=== PATIENT | female | born 1970 | race Two or more races ===

== ENCOUNTER 2016-09-05 16:50 | Emergency (ER) | payer MEDICAID ==
[~2016-09-05] VITALS: Ht 165.1 cm; Wt 90.7 kg
[2016-09-05 17:58] LABS: Albumin 3.7 g/dL (3.4-5.0); BUN/Creatinine Ratio 18.6; Calcium 8.4 mg/dL (8.5-10.1); Potassium 3.8 mmol/L (3.5-5.1)
[2016-09-05 18:09] LABS: Bilirubin, Total 0.2 mg/dL (0.2-1.0); Total Protein 7.5 g/dL (6.4-8.2)
[2016-09-05 18:32] LABS: Basophils # (auto) 0.1 uL; Basophils % (auto) 0.6 % (0.0-2.0); Eosinophils # (auto) 0.2 uL; Eosinophils % (auto) 2.1 % (0.0-7.0); Hematocrit 38.6 % (36.0-46.0); Hemoglobin 13.5 g/dL (12.2-16.2); Lymphocytes # (auto) 1.9 uL; Lymphocytes % (auto) 24.2 % (10.0-50.0); Mean Corpuscular Hemoglobin 31.9 pg (28.0-32.0); Mean Corpuscular Volume 91.1 fL (80.0-100.0); Mean Platelet Volume 9.1 fL (7.4-10.4); Monocytes # (auto) 0.3 uL; Monocytes % (auto) 3.6 % (0.0-12.0); Neutrophils # (auto) 5.4 uL; Neutrophils % (auto) 69.5 % (37.0-80.0); Platelet Count (auto) 313 10^3/uL (140-450); Red Cell Distribution Width 12.9 % (11.6-16.0); White Blood Cell 7.8 10^3/uL (4.4-10.8)
[2016-09-05 20:19] LABS: Urine Bilirubin Negative (Negative); Urine Blood TRACE /uL (Negative); Urine Color Yellow (Yellow); Urine Glucose Normal (Normal); Urine Ketone Negative (Negative); Urine Nitrite Negative (Negative); Urine RBC 2 /hpf (0 - 4); Urine Squamous Epithelial Cell FEW /hpf (<5); Urine Urobilinogen Normal (Negative); Urine pH 5.5 (5.0-8.0)
[2016-09-05 22:33] VITALS: BP 145/95
== END 2016-09-05 22:33 | disposition home or self-care (01) ==
LOC: ER 17:00
DX: R10.9 Unspecified abdominal pain (principal); J45.909 Unspecified asthma, uncomplicated; I10 Essential (primary) hypertension; Z90.710 Acquired absence of both cervix and uterus
CPT/HCPCS: 36415; 71020; 74176; 80053; 81001; 84484; 85025; 93005

== ENCOUNTER 2017-09-22 16:28 | Emergency (ER) | payer SELFPAY ==
[~2017-09-22] VITALS: Ht 165.1 cm; Wt 90.7 kg
[2017-09-22 17:27] LABS: Urine Bacteria NONE SEEN /hpf (None Seen); Urine Blood Negative /uL (Negative); Urine Specific Gravity 1.034 (1.001-1.035); Urine WBC 3 /hpf (0 - 5)
[2017-09-22 17:29] LABS: Basophils # (auto) 0.1 uL; Basophils % (auto) 1.2 % (0.0-2.0); Eosinophils # (auto) 0.1 uL; Eosinophils % (auto) 1.7 % (0.0-7.0); Hematocrit 40.3 % (36.0-46.0); Hemoglobin 13.9 g/dL (12.2-16.2); Lymphocytes # (auto) 1.4 uL; Lymphocytes % (auto) 27.7 % (10.0-50.0); Mean Corpuscular Hemoglobin 31.9 pg (28.0-32.0); Mean Corpuscular Hgb Conc. 34.6 g/dL (32.0-36.0); Mean Corpuscular Volume 92.1 fL (80.0-100.0); Monocytes # (auto) 0.3 uL; Monocytes % (auto) 5.7 % (0.0-12.0); Neutrophils # (auto) 3.2 uL; Neutrophils % (auto) 63.7 % (37.0-80.0); Nucleated Red Blood Cells % 0.1 %; Platelet Count (auto) 251 10^3/uL (140-450); Red Blood Cells 4.37 10^6/uL (4.0-5.20); Red Cell Distribution Width 12.7 % (11.8-14.3); White Blood Cell 5.1 10^3/uL (4.4-10.8)
[2017-09-22 17:41] LABS: Albumin 3.8 g/dL (3.4-5.0); BUN/Creatinine Ratio 16.4; Bilirubin, Total 0.4 mg/dL (0.2-1.0); Calcium 8.7 mg/dL (8.5-10.1); Potassium 3.9 mmol/L (3.5-5.1); Total Protein 7.5 g/dL (6.4-8.2)
[2017-09-22 18:31] VITALS: BP 135/67
== END 2017-09-22 18:32 | disposition home or self-care (01) ==
LOC: ER 16:28
DX: R10.9 Unspecified abdominal pain (principal); I10 Essential (primary) hypertension; J45.909 Unspecified asthma, uncomplicated; E78.5 Hyperlipidemia, unspecified
CPT/HCPCS: 36415; 74176; 80053; 81001; 82150; 83690; 85025; 99285; J7030

== ENCOUNTER 2019-01-13 11:36 | Emergency (ER) | payer MEDICAID ==
[~2019-01-13] VITALS: Ht 165.1 cm; Wt 83.9 kg
[2019-01-13 12:06] VITALS: BP 123/56
[2019-01-13] MEDS ORDERED: ACETAMINOPHEN 500 MG TAB PO ONE (13:30)
== END 2019-01-13 14:24 | disposition home or self-care (01) ==
LOC: ER 11:38
DX: T59.891A Toxic effect of other specified gases, fumes and vapors, accidental (unintentional), initial encounter (principal); R51 Headache; E78.5 Hyperlipidemia, unspecified; I10 Essential (primary) hypertension; J45.909 Unspecified asthma, uncomplicated; Z90.710 Acquired absence of both cervix and uterus; Y92.89 Other specified places as the place of occurrence of the external cause
CPT/HCPCS: 71046

== ENCOUNTER 2020-12-06 23:56 | Emergency (ER) | payer MEDICAID ==
[~2020-12-06] VITALS: Ht 167.6 cm; Wt 93.0 kg
[2020-12-07 01:02] LABS: Basophils # (auto) 0 10 ^3/uL (0-0.2); Basophils % (auto) 0.6 % (0.0-2.0); Eosinophils # (auto) 0.1 10 ^3/uL (0-0.8); Eosinophils % (auto) 1.7 % (0.0-7.0); Hematocrit 39.5 % (36.0-46.0); Hemoglobin 13.7 g/dL (12.2-16.2); Lymphocytes # (auto) 1.5 10 ^3/uL (0.4-5.4); Lymphocytes % (auto) 24.4 % (10.0-50.0); Mean Corpuscular Hemoglobin 31.9 pg (28.0-32.0); Mean Corpuscular Hgb Conc. 34.7 g/dL (32.0-36.0); Mean Corpuscular Volume 91.8 fL (80.0-100.0); Monocytes # (auto) 0.3 10 ^3/uL (0-1.3); Monocytes % (auto) 5.6 % (0.0-12.0); Neutrophils # (auto) 4.1 10 ^3/uL (1.6-8.6); Neutrophils % (auto) 67.7 % (37.0-80.0); Nucleated Red Blood Cells % 0.1 %; Red Cell Distribution Width 13.2 % (11.8-14.3)
[2020-12-07 01:17] LABS: INR 0.99 (0.9-1.15)
[2020-12-07 01:21] LABS: Alanine Aminotransferase 40 U/L (13-56); Albumin 3.7 g/dL (3.4-5.0); Anion Gap 9 (5-15); Aspartate Aminotransferase 14 U/L (15-37); BUN/Creatinine Ratio 24.2; Blood Urea Nitrogen 15 mg/dL (7-18); Carbon Dioxide 27 mmol/L (21-32); Chloride 103 mmol/L (98-107); GFR African American 131 mL/min; GFR Non-African American 108 mL/min; Glucose 225 mg/dL (74-106); Potassium 4.1 mmol/L (3.5-5.1); Sodium 139 mmol/L (136-145)
[2020-12-07 01:28] LABS: Alkaline Phosphatase 73 U/L (45-117); Bilirubin, Total 0.4 mg/dL (0.2-1.0); Total Protein 7.5 g/dL (6.4-8.2)
[2020-12-07 01:49] LABS: Urine Bacteria FEW /hpf (None Seen); Urine Blood Negative /uL (Negative); Urine Specific Gravity 1.018 (1.001-1.035); Urine WBC 5 /hpf (0 - 5)
[2020-12-07] MEDS ORDERED: KETOROLAC TROMETH 30 MG/ML 1ML VIAL IV ONE (03:00)
[2020-12-07 04:12] VITALS: BP 114/62
== END 2020-12-07 06:10 | disposition home or self-care (01) ==
LOC: EDBD 23:56 → ER 12-07 00:04
DX: R07.89 Other chest pain (principal); J45.909 Unspecified asthma, uncomplicated; E11.9 Type 2 diabetes mellitus without complications; E78.5 Hyperlipidemia, unspecified; I10 Essential (primary) hypertension; Z90.710 Acquired absence of both cervix and uterus; Z20.822 Contact with and (suspected) exposure to COVID-19
CPT/HCPCS: 36415; 71045; 80053; 81001; 83735; 83880; 84443; 84484; 85025; 85379; 85610; 87426; 93005; 96374; 99285; J1885

== ENCOUNTER 2021-09-04 21:25 | Emergency (ER) | payer MEDICAID ==
[~2021-09-04] VITALS: Ht 165.1 cm; Wt 83.9 kg
[2021-09-04 23:05] LABS: Basophils # (auto) 0.1 10 ^3/uL (0-0.2); Basophils % (auto) 0.7 % (0.0-2.0); Eosinophils # (auto) 0.1 10 ^3/uL (0-0.8); Eosinophils % (auto) 1.2 % (0.0-7.0); Hematocrit 40.3 % (36.0-46.0); Hemoglobin 14.2 g/dL (12.2-16.2); Lymphocytes # (auto) 1.5 10 ^3/uL (0.4-5.4); Lymphocytes % (auto) 14.2 % (10.0-50.0); Mean Corpuscular Hemoglobin 31.6 pg (28.0-32.0); Mean Corpuscular Hgb Conc. 35.1 g/dL (32.0-36.0); Mean Corpuscular Volume 90.1 fL (80.0-100.0); Monocytes # (auto) 0.5 10 ^3/uL (0-1.3); Monocytes % (auto) 4.8 % (0.0-12.0); Neutrophils # (auto) 8.5 10 ^3/uL (1.6-8.6); Neutrophils % (auto) 79.1 % (37.0-80.0); Red Blood Cells 4.48 10^6/uL (4.0-5.20); Red Cell Distribution Width 13.5 % (11.8-14.3); White Blood Cell 10.8 10^3/uL (4.4-10.8)
[2021-09-04 23:33] LABS: Albumin 3.5 g/dL (3.4-5.0); Calcium 8.9 mg/dL (8.5-10.1); Potassium 4.2 mmol/L (3.5-5.1)
[2021-09-04 23:38] LABS: BUN/Creatinine Ratio 19.4; Bilirubin, Total 0.5 mg/dL (0.2-1.0); Total Protein 7.4 g/dL (6.4-8.2)
[2021-09-04] MEDS ORDERED: ONDANSETRON ODT 4 MG TAB PO ONE (23:45)
[2021-09-05] MEDS ORDERED: SODIUM CHLORIDE 0.9% 500 ML IV ONE (04:30)
[2021-09-05] MEDS ORDERED: metroNIDAZOLE 500MG/100ML 100 ML IV ONE (04:30)
[2021-09-05] MEDS ORDERED: HYDROmorphone HCL 2 MG/ML VL/or syr IV ONE (04:30)
[2021-09-05] MEDS ORDERED: CIPROFLOXACIN 400MG/200ML 200 ML IV ONE (04:30)
[2021-09-05] MEDS ORDERED: CIPR-173 PO (05:57)
[2021-09-05] MEDS ORDERED: METR500T PO (05:57)
[2021-09-05 07:46] VITALS: BP 146/92
[2021-09-05] MEDS ORDERED: HYDROcodone-ACET 5/325MG TAB PO ONE (08:00)
== END 2021-09-05 12:45 | disposition home or self-care (01) ==
LOC: ER 21:28
DX: K52.9 Noninfective gastroenteritis and colitis, unspecified (principal); I10 Essential (primary) hypertension; E11.9 Type 2 diabetes mellitus without complications; E78.5 Hyperlipidemia, unspecified; J45.909 Unspecified asthma, uncomplicated; Z86.2 Personal history of diseases of the blood and blood-forming organs and certain disorders involving the immune mechanism; Z90.710 Acquired absence of both cervix and uterus
CPT/HCPCS: 36415; 74176; 80053; 83690; 85025; 96365; 96366; 96367; 99284; J0744; J3490; J7040; Q0162

== ENCOUNTER 2023-09-11 15:10 | Emergency (ER) | payer MEDICAID ==
[~2023-09-11] VITALS: Ht 165.1 cm; Wt 97.1 kg
[~2023-09-11 15:10] MED LIST: CIPR-173 PO; METR500T PO
[2023-09-11 16:16] LABS: Urine Bacteria FEW /hpf (None Seen); Urine Blood Negative /uL (Negative); Urine Clarity Clear (Clear); Urine Color Yellow (Yellow); Urine Protein, UAD TRACE (Negative); Urine Specific Gravity 1.026 (1.001-1.035); Urine Urobilinogen Normal (Negative); Urine WBC 6 /hpf (0 - 5); Urine pH 5.5 (5.0-9.0)
[2023-09-11 16:41] LABS: Basophils # (auto) 0.1 10 ^3/uL (0-0.2); Eosinophils # (auto) 0.1 10 ^3/uL (0-0.8); Eosinophils % (auto) 1.1 % (0.0-7.0); Hematocrit 43.3 % (36.0-46.0); Hemoglobin 14.7 g/dL (12.2-16.2); Lymphocytes # (auto) 2.2 10 ^3/uL (0.4-5.4); Lymphocytes % (auto) 26.9 % (10.0-50.0); Mean Corpuscular Hgb Conc. 33.9 g/dL (32.0-36.0); Mean Corpuscular Volume 88.7 fL (80.0-100.0); Monocytes # (auto) 0.5 10 ^3/uL (0-1.3); Monocytes % (auto) 5.7 % (0.0-12.0); Neutrophils # (auto) 5.2 10 ^3/uL (1.6-8.6); Neutrophils % (auto) 65.3 % (37.0-80.0); Nucleated Red Blood Cells % 0.3 %; Red Blood Cells 4.89 10^6/uL (4.0-5.20); Red Cell Distribution Width 13.3 % (11.8-14.3)
[2023-09-11 17:02] LABS: Alanine Aminotransferase 42 U/L (7-40); Albumin 4.5 g/dL (3.2-4.8); Alkaline Phosphatase 89 U/L (46-116); Anion Gap 6 (5-15); Aspartate Aminotransferase 14 U/L (13-40); BUN/Creatinine Ratio 16.7 (10.0-20.0); Bilirubin, Total 0.4 mg/dL (0.2-1.0); Blood Urea Nitrogen 14 mg/dL (9-23); Calcium 10.3 mg/dL (8.7-10.4); Carbon Dioxide 27 mmol/L (20-30); Chloride 103 mmol/L (98-107); Glucose 273 mg/dL (74-106); Lipase 29 U/L (12-53); Potassium 4.1 mmol/L (3.5-5.1); Sodium 136 mmol/L (136-145); Total Protein 7.1 g/dL (5.7-8.2)
[2023-09-11 17:13] VITALS: BP 135/79; PULSE 98; RESP 16; TEMP 98.7; O2SAT 96
== END 2023-09-11 17:21 | disposition home or self-care (01) ==
LOC: ER 15:10
DX: N83.202 Unspecified ovarian cyst, left side (principal); E11.9 Type 2 diabetes mellitus without complications; E78.5 Hyperlipidemia, unspecified; J45.909 Unspecified asthma, uncomplicated; R16.0 Hepatomegaly, not elsewhere classified; Z86.73 Personal history of transient ischemic attack (TIA), and cerebral infarction without residual deficits; Z90.710 Acquired absence of both cervix and uterus
CPT/HCPCS: 36415; 74176; 80053; 81001; 83605; 83690; 84484; 85025; 93005

== ENCOUNTER 2023-10-20 19:41 | Inpatient (IN) | payer MEDICAID ==
[~2023-10-20] VITALS: Ht 165.1 cm; Wt 94.8 kg
[2023-10-20 20:27] LABS: Urine Bacteria None Seen /hpf (None Seen)
[2023-10-20 20:49] LABS: Basophils # (auto) 0.1 10 ^3/uL (0-0.2); Basophils % (auto) 0.8 % (0.0-2.0); Eosinophils # (auto) 0.1 10 ^3/uL (0-0.8); Eosinophils % (auto) 1.3 % (0.0-7.0); Hematocrit 41.8 % (36.0-46.0); Hemoglobin 14.3 g/dL (12.2-16.2); Lymphocytes # (auto) 1.8 10 ^3/uL (0.4-5.4); Mean Corpuscular Hemoglobin 30.9 pg (28.0-32.0); Mean Corpuscular Hgb Conc. 34.3 g/dL (32.0-36.0); Monocytes # (auto) 0.4 10 ^3/uL (0-1.3); Monocytes % (auto) 6.3 % (0.0-12.0); Neutrophils # (auto) 4.1 10 ^3/uL (1.6-8.6); Neutrophils % (auto) 63.6 % (37.0-80.0); Nucleated Red Blood Cells % 0.2 %; Red Blood Cells 4.64 10^6/uL (4.0-5.20); Red Cell Distribution Width 13.3 % (11.8-14.3); White Blood Cell 6.4 10^3/uL (4.4-10.8)
[2023-10-20] MEDS: SODIUM CHLORIDE 0.9% 1,000 ML IV ONE (21:00)
[2023-10-20 21:05] LABS: Alanine Aminotransferase 32 U/L (7-40); Albumin 4.4 g/dL (3.2-4.8); Alkaline Phosphatase 88 U/L (46-116); Anion Gap 7 (5-15); Aspartate Aminotransferase 12 U/L (13-40); BUN/Creatinine Ratio 11.8 (10.0-20.0); Bilirubin, Total 0.4 mg/dL (0.2-1.0); Blood Urea Nitrogen 9 mg/dL (9-23); Calcium 9.7 mg/dL (8.7-10.4); Carbon Dioxide 23 mmol/L (20-30); Chloride 107 mmol/L (98-107); Glucose 385 mg/dL (74-106); Lipase 42 U/L (12-53); Potassium 3.9 mmol/L (3.5-5.1); Sodium 137 mmol/L (136-145); Total Protein 7.1 g/dL (5.7-8.2)
[2023-10-20 21:11] LABS: Urine Blood Negative /uL (Negative); Urine Clarity Clear (Clear); Urine Color Colorless (Yellow); Urine Protein, UAD Negative (Negative); Urine Specific Gravity 1.024 (1.001-1.035); Urine Urobilinogen Normal (Negative); Urine WBC 2 /hpf (0 - 5)
[2023-10-20 21:42] LABS: INR 0.95 (0.9-1.15); Prothrombin Time 10.1 sec (9.3-11.8)
[2023-10-20] MEDS ORDERED: DEXTROSE (50%) 50ML SYRG IV PRN (23:15)
[2023-10-21] VITALS (9 sets, daily range): BP systolic 94–137; BP diastolic 58–75; PULSE 72–96; RESP 18–20; TEMP 97.5–98.7; O2SAT 94–98
[2023-10-21] MEDS: InsuLIN REG 1unit/0.01ml Soln (100units/ml) SC SCH
[2023-10-21] MEDS: ACCU-CHEK COMFORT CURVE STRIP VI SCH
[2023-10-21] MEDS: PANTOPRAZOLE 40 MG/10 ML VIAL INJ IV ONE (02:08)
[2023-10-21] MEDS: SODIUM CHLORIDE 0.9% 1,000 ML IV SCH (02:09)
[2023-10-21 04:57] LABS: Basophils # (auto) 0.1 10 ^3/uL (0-0.2); Basophils % (auto) 0.8 % (0.0-2.0); Eosinophils # (auto) 0.1 10 ^3/uL (0-0.8); Eosinophils % (auto) 1.4 % (0.0-7.0); Hematocrit 41.1 % (36.0-46.0); Hemoglobin 13.9 g/dL (12.2-16.2); Lymphocytes % (auto) 26.5 % (10.0-50.0); Mean Corpuscular Hemoglobin 30.3 pg (28.0-32.0); Mean Corpuscular Hgb Conc. 33.9 g/dL (32.0-36.0); Mean Corpuscular Volume 89.5 fL (80.0-100.0); Monocytes # (auto) 0.5 10 ^3/uL (0-1.3); Monocytes % (auto) 6.8 % (0.0-12.0); Neutrophils # (auto) 4.8 10 ^3/uL (1.6-8.6); Neutrophils % (auto) 64.5 % (37.0-80.0); Nucleated Red Blood Cells % 0.1 %; Red Blood Cells 4.59 10^6/uL (4.0-5.20); Red Cell Distribution Width 13.7 % (11.8-14.3); White Blood Cell 7.5 10^3/uL (4.4-10.8)
[2023-10-21 05:18] LABS: Alanine Aminotransferase 30 U/L (7-40); Albumin 4.3 g/dL (3.2-4.8); Alkaline Phosphatase 82 U/L (46-116); Anion Gap 5 (5-15); Aspartate Aminotransferase 10 U/L (13-40); BUN/Creatinine Ratio 13.8 (10.0-20.0); Bilirubin, Total 0.6 mg/dL (0.2-1.0); Blood Urea Nitrogen 8 mg/dL (9-23); Calcium 9.3 mg/dL (8.7-10.4); Carbon Dioxide 25 mmol/L (20-30); Chloride 110 mmol/L (98-107); Glucose 179 mg/dL (74-106); Potassium 3.8 mmol/L (3.5-5.1); Sodium 140 mmol/L (136-145); Total Protein 6.9 g/dL (5.7-8.2)
[2023-10-21] MEDS ORDERED: ASPI-498 OR (06:29)
[2023-10-21] MEDS ORDERED: SITA100T7 PO (06:29)
[2023-10-21] MEDS ORDERED: LISI2.5T47 PO (06:29)
[2023-10-21] MEDS ORDERED: GLIM2TAB33 PO (06:29)
[2023-10-21] MEDS: PANTOPRAZOLE 40 MG/10 ML VIAL INJ IV SCH (10:44)
[2023-10-21] MEDS: ONDANSETRON HCL 4 MG/2 ML VIAL IV PRN (17:44)
[2023-10-22] VITALS (7 sets, daily range): BP systolic 107–137; BP diastolic 70–80; PULSE 73–89; RESP 16–19; TEMP 97.8–98.4; O2SAT 94–98
[2023-10-22] MEDS: MORPHINE SULFATE INJ 2 MG/ml SYRG IV PRN (04:46)
[2023-10-22 06:56] LABS: Anion Gap 6 (5-15); Carbon Dioxide 27 mmol/L (20-30); Chloride 108 mmol/L (98-107); Potassium 3.8 mmol/L (3.5-5.1); Sodium 141 mmol/L (136-145)
[2023-10-22 06:57] LABS: Basophils # (auto) 0 10 ^3/uL (0-0.2); Basophils % (auto) 0.7 % (0.0-2.0); Calcium 9.4 mg/dL (8.5-10.1); Eosinophils # (auto) 0.1 10 ^3/uL (0-0.8); Eosinophils % (auto) 2.1 % (0.0-7.0); Hematocrit 39.3 % (36.0-46.0); Hemoglobin 13.7 g/dL (12.2-16.2); Lymphocytes # (auto) 1.6 10 ^3/uL (0.4-5.4); Lymphocytes % (auto) 28.5 % (10.0-50.0); Mean Corpuscular Hemoglobin 30.9 pg (28.0-32.0); Mean Corpuscular Hgb Conc. 34.7 g/dL (32.0-36.0); Mean Corpuscular Volume 88.9 fL (80.0-100.0); Monocytes # (auto) 0.3 10 ^3/uL (0-1.3); Monocytes % (auto) 5.3 % (0.0-12.0); Neutrophils # (auto) 3.6 10 ^3/uL (1.6-8.6); Neutrophils % (auto) 63.4 % (37.0-80.0); Nucleated Red Blood Cells % 0.2 %; Red Blood Cells 4.42 10^6/uL (4.0-5.20); Red Cell Distribution Width 13.2 % (11.8-14.3); White Blood Cell 5.6 10^3/uL (4.4-10.8)
[2023-10-22 07:02] LABS: BUN/Creatinine Ratio 8.5 (10.0-20.0); Blood Urea Nitrogen < 5 mg/dL (9-23); Glucose 139 mg/dL (74-106)
[2023-10-22 07:07] LABS: Magnesium 1.8 mg/dL (1.6-2.6)
[2023-10-22] MEDS: ASPirin 81 mg TAB PO PRN (10:59)
[2023-10-22] MEDS ORDERED: LOPERAMIDE HCL 2 MG CAP/TAB PO PRN (15:30)
[2023-10-22] MEDS: DICYCLOMINE HCL 10 MG CAP PO PRN (23:13)
[2023-10-23] VITALS (7 sets, daily range): BP systolic 108–148; BP diastolic 54–87; PULSE 67–81; RESP 14–19; TEMP 97.6–99.1; O2SAT 95–98
[2023-10-23 06:54] LABS: Basophils # (auto) 0 10 ^3/uL (0-0.2); Basophils % (auto) 0.7 % (0.0-2.0); Eosinophils # (auto) 0.1 10 ^3/uL (0-0.8); Hemoglobin 13.3 g/dL (12.2-16.2); Lymphocytes # (auto) 1.7 10 ^3/uL (0.4-5.4); Lymphocytes % (auto) 30.1 % (10.0-50.0); Mean Corpuscular Hemoglobin 30.5 pg (28.0-32.0); Mean Corpuscular Volume 89.5 fL (80.0-100.0); Monocytes # (auto) 0.4 10 ^3/uL (0-1.3); Monocytes % (auto) 6.8 % (0.0-12.0); Neutrophils # (auto) 3.5 10 ^3/uL (1.6-8.6); Neutrophils % (auto) 60.4 % (37.0-80.0); Nucleated Red Blood Cells % 0.2 %; Red Blood Cells 4.36 10^6/uL (4.0-5.20); White Blood Cell 5.8 10^3/uL (4.4-10.8)
[2023-10-23 07:07] LABS: Anion Gap 3 (5-15); Carbon Dioxide 30 mmol/L (20-30); Chloride 108 mmol/L (98-107); Potassium 4.1 mmol/L (3.5-5.1); Sodium 141 mmol/L (136-145)
[2023-10-23 07:08] LABS: Calcium 9.5 mg/dL (8.5-10.1)
[2023-10-23 07:13] LABS: Glucose 143 mg/dL (74-106); Magnesium 1.7 mg/dL (1.6-2.6)
[2023-10-23 07:15] LABS: BUN/Creatinine Ratio 8.1 (10.0-20.0); Blood Urea Nitrogen < 5 mg/dL (9-23)
[2023-10-23] MEDS: MAGNESIUM OXIDE 400 MG TAB PO ONE (10:00)
[2023-10-23] MEDS ORDERED: DICY10CA PO (14:27)
[2023-10-23] MEDS ORDERED: HYDR5CRE3 PR (14:27)
[2023-10-24 01:48] VITALS: BP 114/54; PULSE 61; RESP 16; TEMP 97.8; O2SAT 96
[2023-10-24 06:14] VITALS: BP 116/73; PULSE 85; RESP 19; TEMP 98.4; O2SAT 95
[2023-10-24 09:00] VITALS: BP 141/83; PULSE 75; RESP 17; TEMP 98.4; O2SAT 96
[2023-10-24 10:57] LABS: Basophils # (auto) 0.1 10 ^3/uL (0-0.2); Basophils % (auto) 0.8 % (0.0-2.0); Eosinophils # (auto) 0.1 10 ^3/uL (0-0.8); Eosinophils % (auto) 1.3 % (0.0-7.0); Hematocrit 43.4 % (36.0-46.0); Hemoglobin 14.7 g/dL (12.2-16.2); Lymphocytes # (auto) 1.7 10 ^3/uL (0.4-5.4); Lymphocytes % (auto) 25.9 % (10.0-50.0); Mean Corpuscular Hemoglobin 30.3 pg (28.0-32.0); Mean Corpuscular Hgb Conc. 33.7 g/dL (32.0-36.0); Mean Corpuscular Volume 89.7 fL (80.0-100.0); Monocytes # (auto) 0.3 10 ^3/uL (0-1.3); Monocytes % (auto) 4.9 % (0.0-12.0); Neutrophils # (auto) 4.4 10 ^3/uL (1.6-8.6); Neutrophils % (auto) 67.1 % (37.0-80.0); Nucleated Red Blood Cells % 0.4 %; Red Blood Cells 4.84 10^6/uL (4.0-5.20); Red Cell Distribution Width 13.3 % (11.8-14.3); White Blood Cell 6.5 10^3/uL (4.4-10.8)
[2023-10-24 11:19] LABS: Alanine Aminotransferase 62 U/L (7-40); Albumin 4.4 g/dL (3.2-4.8); Alkaline Phosphatase 94 U/L (46-116); Anion Gap 6 (5-15); Aspartate Aminotransferase 28 U/L (13-40); BUN/Creatinine Ratio 8.2 (10.0-20.0); Bilirubin, Total 0.8 mg/dL (0.2-1.0); Blood Urea Nitrogen 6 mg/dL (9-23); Calcium 10.4 mg/dL (8.7-10.4); Carbon Dioxide 29 mmol/L (20-30); Chloride 103 mmol/L (98-107); Glucose 278 mg/dL (74-106); Potassium 4.4 mmol/L (3.5-5.1); Sodium 138 mmol/L (136-145); Total Protein 7.3 g/dL (5.7-8.2)
== END 2023-10-24 13:54 | disposition home or self-care (01) | DRG 254 ==
LOC: ER 19:41 → OVERFLOW 23:16 → WEST WING 23:16
PROVIDERS: ADMIT Internal Medicine; ATTEND Internal Medicine
DX: K64.9 Unspecified hemorrhoids (principal); K76.0 Fatty (change of) liver, not elsewhere classified; E11.65 Type 2 diabetes mellitus with hyperglycemia; I88.0 Nonspecific mesenteric lymphadenitis; D27.1 Benign neoplasm of left ovary; E11.9 Type 2 diabetes mellitus without complications; E78.5 Hyperlipidemia, unspecified; I10 Essential (primary) hypertension; J45.909 Unspecified asthma, uncomplicated; Z90.710 Acquired absence of both cervix and uterus; Z83.3 Family history of diabetes mellitus; Z79.899 Other long term (current) drug therapy; Z79.4 Long term (current) use of insulin
CPT/HCPCS: 36415; 74176; 80048; 80053; 81001; 82962; 83690; 83735; 83986; 85025; 85048; 85610; 86850; 86900; 86901; 87045; 87427; 87493; 96361; 96374; G0378; J1815; J2405; J2470

== ENCOUNTER 2024-06-08 12:33 | Inpatient (IN) | payer MEDICAID ==
[~2024-06-08] VITALS: Ht 157.5 cm; Wt 98.5 kg
[~2024-06-08 12:33] MED LIST changes: +ASPI-498 OR; -CIPR-173 PO; +DICY10CA PO; +GLIM2TAB33 PO; +HYDR5CRE3 PR; +LISI2.5T47 PO; -METR500T PO; +SITA100T7 PO
--- NOTE | 2024-06-08 13:10 | ED.PDOC ---
HPI Comments HPI: Poor Historian. 53 y/o F, presents to the ED for CC of chest pain. Patient states, that she began to experience sudden substernal chest pain for the last two days.. Patient describes, chest pain to be non-radiating and pressure like in sensation. Patient comments on, associated symptoms of shortness of breath with light exertion. Patient relays to never have experienced symptoms in the past. Patient denies abdominal pain, fever, chills, or N/V/D. No other symptoms or modifying factors at this time. Patient was scheduled for colonoscopy tomorrow. Patient took some Tylenol for her pain this morning. Patient never had any cardiac evaluation in the past. Initial Vital Signs: Temp : 97.7 BP: 133/80 HR: 79 RR: 17 SpO2: 98 Past Medical History: HTN, HLD, DM, HI Past Surgical History: Denies any Social History: Denies smoking, ETOH, or drug use. Medications: LISINOPRIL ACRIVASTINE ASA NTG Allergies: NKDA REVIEW OF SYSTEMS: CONSTITUTIONAL: Denies acute: fever, diaphoresis, chills, generalized weakness. HEAD: Denies acute: headache, photophobia Eyes: Denies acute: Double vision, vision loss, eye pain, eye discharge. EARS: Denies acute: tinnitus, hearing loss, ear discharge, ear pain, THROAT: Denies acute: sore throat, swelling, difficulty swallowing , pain with swallowing, change in voice. NECK: Denies acute: neck pain, neck swelling, stiff neck. HEART: Denies acute : palpitations, LUNGS: Denies acute: SOB, wheezing, cough, hemoptysis ABDOMEN: Denies acute: abdominal pain, Nausea, Vomiting, diarrhea, melena , hematemesis, hematochezia SKIN: Denies acute: rash, redness, lesions, itchiness. EXTREMITIES: Denies acute: calf pain, numbness, tingling, weakness, denies pain in extremity. Denies acute: Low back pain. Neuro: Denies acute: focal neurological deficit, motor or sensory focal neurological deficit, tremors, seizure like activity, confusion, dizziness, change in mental status, loss of bowel or bladder function, cauda equina like symptoms. : Denies acute: dysuria, hematuria, flank pain, increase in urinary frequency. PSYCH: Denies acute: hallucination, suicidal ideation, homicidal ideation. FEMALE: Denies acute: abnormal vaginal bleeding, foul odor, unusual discharge. PHYSICAL EXAM: General: Mild acute distress, awake and alert. Head: normocephalic, atraumatic. Neck: supple, trachea is midline, no swelling. Throat: Normal phonation. Eyes:, no erythema, no purulent discharge, no proptosis, no icterus. Heart: regular rate, regular rhythm, no significant murmur appreciated. Lungs: no apparent respiratory distress, Able to speak in full sentences. No wheezing, no rhonchi, no crackles. No stridors Clear to auscultation bilaterally. Abdomen: non tender to palpation, non distended, soft, no guarding, no rebound, + bowel sounds. Obese Neuro: Awake, Alert, oriented to name, self, situation, follows commands GCS=15. Speech is normal. Skin: no petechia, no purpura, no cyanosis, non-pale, not jaundice. Lower extremities: --no - Pitting edema no deformity, no focal swelling, no calf TTP. Makes eye contact. moves all four extremities. Face: no apparent facial droop. Ambulating in the ED independently. ED COURSE: Chief Complaint: Chest Pain Time Seen by MD: 12:40 Primary Care Provider: XENIA Reviewed Notes: Nurses Notes, Medications, Allergies Allergies: Coded Allergies: NO KNOWN ALLERGIES (Unverified , 12/07/20) Home Meds Active Scripts Hydrocortisone (Rectal) (Procto-Med Hc) 2.5 % Cre, 2.5 % WI PRN for 14 Days, #1 CRE Prov:MONTSE DIAZ RESIDENT 10/23/23 Dicyclomine Hcl (BENTYL CAPSULE) 10 Mg Cp, 10 MG PO TIDP PRN for 3 Days, #9 CAP Prov:MONTSE DIAZ RESIDENT 10/23/23 Reported Medications Aspirin (ASPIRIN 81) 81 Mg Tab, 81 MG OR, TAB 10/21/23 Glimepiride (Glimepiride) 2 Mg Tab, 1 TAB PO DAILY, #30 TAB 5 Refills 10/21/23 Sitagliptin Phosphate (Januvia) 100 Mg Tab, 1 TAB PO DAILY, #30 TAB 5 Refills 10/21/23 Lisinopril (Lisinopril) 2.5 Mg Tab, 1 TAB PO DAILY, #30 TAB 5 Refills 10/21/23 Information Source: Patient Mode of Arrival: Ambulatory Severity: Mild Timing: Minutes Duration: Since onset Prehospital treatment: None Location: Substernal Radiation: No Radiation Quality: Pressure Onset: With Light Exertion Cardiac Risk Factors: None PE Risk Factors: None History of: None Modifying Factors: Nothing Associated Signs and Symptoms: SOB Was a procedure done? Was a procedure done?: No CP Differential Dx Differential Diagnosis: N/A Differential Diagnosis: Other (Ddx include but not limitied to gastritis, musculoskeletal pain, radiculopathy, atypical chest pain, dissection, aneurysm, ACS, unstable angina, hiatal hernia, GERD, anxiety, costochondritis, PE, pneumothroax, neoplasm, cardiac ischemia, drug abuse, anemia.) X-Ray, Labs, Meds, VS Vital Signs Date Time Temp Pulse Resp B/P (MAP) Pulse Ox O2 Delivery O2 Flow Rate FiO2 06/08/24 15:43 73 06/08/24 13:38 75 06/08/24 12:52 97.7 79 17 133/80 (97) 96 06/08/24 12:38 73 Lab Test 06/08/24 15:26 06/08/24 13:13 Range/Units Troponin I High Sensitivity < 3 L < 3 L </=34 ng/L White Blood Count 6.8 4.4-10.8 10^3/uL Red Blood Count 4.67 4.0-5.20 10^6/uL Hemoglobin 14.2 12.2-16.2 g/dL Hematocrit 41.9 36.0-46.0 % Mean Corpuscular Volume 89.7 80.0-100.0 fL Mean Corpuscular Hemoglobin 30.4 28.0-32.0 pg Mean Corpuscular Hemoglobin Concent 33.9 32.0-36.0 g/dL Red Cell Distribution Width 13.7 11.8-14.3 % Platelet Count 264 140-450 10^3/uL Mean Platelet Volume 8.3 6.9-10.8 fL Neutrophils (%) (Auto) 59.0 37.0-80.0 % Lymphocytes (%) (Auto) 26.9 10.0-50.0 % Monocytes (%) (Auto) 3.9 0.0-12.0 % Eosinophils (%) (Auto) 9.6 H 0.0-7.0 % Basophils (%) (Auto) 0.6 0.0-2.0 % Neutrophils # (Auto) 4.0 1.6-8.6 10 ^3/uL Lymphocytes # (Auto) 1.8 0.4-5.4 10 ^3/uL Monocytes # (Auto) 0.3 0-1.3 10 ^3/uL Eosinophils # (Auto) 0.7 0-0.8 10 ^3/uL Basophils # (Auto) 0 0-0.2 10 ^3/uL Nucleated Red Blood Cells 0.1 % D-Dimer, Quantitative 0.20 0.0-0.49 mg/L FEU Sodium Level 139 136-145 mmol/L Potassium Level 4.2 3.5-5.1 mmol/L Chloride Level 103 98-107 mmol/L Carbon Dioxide Level 28 20-31 mmol/L Anion Gap 8 5-15 Blood Urea Nitrogen 11 9-23 mg/dL Creatinine 0.72 0.550-1.02 mg/dL Glomerular Filtration Rate Calc 99 >90 mL/min BUN/Creatinine Ratio 15.3 10.0-20.0 Serum Glucose 239 H 74-106 mg/dL Calcium Level 10.3 8.7-10.4 mg/dL Total Bilirubin 0.5 0.2-1.0 mg/dL Aspartate Amino Transferase (AST) 13 13-40 U/L Alanine Aminotransferase (ALT) 27 7-40 U/L Alkaline Phosphatase 105 46-116 U/L B-Type Natriuretic Peptide 5.94 0-100 pg/mL Total Protein 7.0 5.7-8.2 g/dL Albumin 4.8 3.2-4.8 g/dL [address] [address] Ph: [phone] DIAGNOSTIC IMAGING Diagnostic Imaging Report : [id number] Signed PATIENT: LEANA KENDALL ACCT: [id number] UNIT: [id number] : 1970 LOC: ER ROOM / BED: / AGE / SEX: 53 / F ADM STATUS: REG ER SERVICE 1244 ORDERING PHYSICIAN: CAM TOVAR DO PROCEDURE(s): CXRP - CHEST PORTABLE REASON: CP ORDER NUMBER(s): [id number], ACCESSION NUMBER(s): [id number] CHEST RADIOGRAPH Indication: CP Technique: Single frontal view of the chest was obtained COMPARISON: CHEST PORTABLE on DOS: 12/07/20 FINDINGS: Lines and Tubes: None Lungs: Clear Pleura: No effusion. No pneumothorax. Cardiomediastinal contours: Unremarkable Bones: Unremarkable IMPRESSION: No acute disease. ATED BY: DANIAL BARTLETT MD DICTATED DATE/TIME: 06/08/241309 SIGNED BY: DANIAL BARTLETT MD SIGNED DATE/TIME: 06/08/241309 CC: Time of 1ST Reevaluation: 13:20 Reevaluation 1ST: Unchanged Patient Education/Counseling: Diagnosis, Treatment Family Education/Counseling: No Family Present Comments Patient presented with the above HPI.--CHEST PAIN ----workup was initiated. patient was found with the above mentioned diagnosis. the following medications were ordered: ASPIRIN ENTERIC COATED TABLET please refer to order lists of meds and tests obtained by myself Dr. Tovar. Patient ED course and VS have been stabilized. Patient has been reassessed in the ED and remained in a stable condition. Pertinent incidental findings were discussed with the patient and/or family. Patient/family voices understanding and is agreeable with plan. Patient has been observed in the ED adequate length of time to insure improvement/stability. Escalation of care considered: Consideration of escalation to observation or admission Patient was ADMITTED to the medicine team for further evaluation and treatment of their presentation. All the reports of any imaging studies that were ordered by myself were reviewed by myself. Departure 1 Departure Time of Disposition: 14:33 Impression: Primary Impression: Chest pain Disposition: ADMITTED INPATIENT Admit to: Tele Condition: Guarded Additional Instructions: [place] [address] Ph: [phone] DIAGNOSTIC IMAGING Diagnostic Imaging Report : [id number] Signed PATIENT: LEANA KENDALL ACCT: [id number] UNIT: [id number] : 1970 LOC: ER ROOM / BED: / AGE / SEX: 53 / F ADM STATUS: REG ER SERVICE 1244 ORDERING PHYSICIAN: CAM TOVAR DO PROCEDURE(s): CXRP - CHEST PORTABLE REASON: CP ORDER NUMBER(s): [id number], ACCESSION NUMBER(s): [id number] CHEST RADIOGRAPH Indication: CP Technique: Single frontal view of the chest was obtained COMPARISON: CHEST PORTABLE on DOS: 12/07/20 FINDINGS: Lines and Tubes: None Lungs: Clear Pleura: No effusion. No pneumothorax. Cardiomediastinal contours: Unremarkable Bones: Unremarkable IMPRESSION: No acute disease. ATED BY: DANIAL BARTLETT MD DICTATED DATE/TIME: 06/08/24 1310 SIGNED BY: DANIAL BARTLETT MD SIGNED DATE/TIME: 06/08/24 1310 CC: Discharged With: Self Critical Care Note Critical Care Time?: No Heart Score Heart Score: Heart Score Response (Comments) Value History Moderate Suspicious 1 EKG Normal 0 Age 45-64 1 Risk Factors 1 or 2 risk factors 1 Troponin Normal limit 0 Total 3 I personally scribed for CAM TOVAR DO ([email or web address]) on 06/08/24 at 13:10. Electronically submitted by Remedios Judge ([email or web address]). I personally scribed for CAM TOVAR DO ([email or web address]) on 06/08/24 at 15:29. Electronically submitted by Remedios Judge ([email or web address]). I personally scribed for CAM TOVAR DO ([email or web address]) on 06/08/24 at 15:31. Electronically submitted by Remedios Judge ([email or web address]). CAM TOVAR DO Jun 08, 2024 13:10
[2024-06-08 13:50] LABS: Basophils # (auto) 0 10 ^3/uL (0-0.2); Basophils % (auto) 0.6 % (0.0-2.0); Eosinophils # (auto) 0.7 10 ^3/uL (0-0.8); Eosinophils % (auto) 9.6 % (0.0-7.0); Hematocrit 41.9 % (36.0-46.0); Hemoglobin 14.2 g/dL (12.2-16.2); Lymphocytes # (auto) 1.8 10 ^3/uL (0.4-5.4); Lymphocytes % (auto) 26.9 % (10.0-50.0); Mean Corpuscular Hemoglobin 30.4 pg (28.0-32.0); Mean Corpuscular Hgb Conc. 33.9 g/dL (32.0-36.0); Mean Corpuscular Volume 89.7 fL (80.0-100.0); Monocytes # (auto) 0.3 10 ^3/uL (0-1.3); Monocytes % (auto) 3.9 % (0.0-12.0); Nucleated Red Blood Cells % 0.1 %; Platelet Count (auto) 264 10^3/uL (140-450); Red Blood Cells 4.67 10^6/uL (4.0-5.20); Red Cell Distribution Width 13.7 % (11.8-14.3); White Blood Cell 6.8 10^3/uL (4.4-10.8)
[2024-06-08 13:58] LABS: Alanine Aminotransferase 27 U/L (7-40); Alkaline Phosphatase 105 U/L (46-116); Anion Gap 8 (5-15); BUN/Creatinine Ratio 15.3 (10.0-20.0); Bilirubin, Total 0.5 mg/dL (0.2-1.0); Blood Urea Nitrogen 11 mg/dL (9-23); Calcium 10.3 mg/dL (8.7-10.4); Carbon Dioxide 28 mmol/L (20-31); Chloride 103 mmol/L (98-107); Potassium 4.2 mmol/L (3.5-5.1); Sodium 139 mmol/L (136-145)
[2024-06-08 14:03] LABS: Albumin 4.8 g/dL (3.2-4.8); Aspartate Aminotransferase 13 U/L (13-40); Glucose 239 mg/dL (74-106)
--- NOTE | 2024-06-08 14:44 | ECG ---
[facility] Test Date: 2024-06-08 Test Time: 12:38:42 Pat Name: LEANA KENDALL Department: ER Room: 0295T Gender: F Remote Advisor: : 1970 Requested By: CAM TOVAR Order Number: [id number] Reading MD: Eric Jimenez Measurements Intervals [place] Rate: 73 P: 52 FL: 128 QRS: 15 QRSD: 82 T: 29 QT: 378 QTc: 417 Interpretive Statements Sinus rhythm Low voltage, precordial leads Electronically Signed On 06-10-2024 22:07:43 PST by Eric Jimenez Please click the below link to view image of tracing.
--- NOTE | 2024-06-08 15:44 | ECG ---
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
[2024-06-08] MEDS ORDERED: DEXTROSE (50%) 50ML SYRG IV PRN (19:30)
[2024-06-08] MEDS ORDERED: NITROGLYCERIN 0.4 MG SL TAB SL PRN (19:30)
[2024-06-08] MEDS ORDERED: ACETAMINOPHEN 325 MG TAB PO PRN (19:30)
[2024-06-08] MEDS ORDERED: MORPHINE SULFATE INJ 2 MG/ml SYRG IV PRN (19:30)
[2024-06-08] MEDS ORDERED: ONDANSETRON HCL 4 MG/2 ML VIAL IV PRN (19:30)
[2024-06-08] MEDS ORDERED: TEMAZEPAM 15 MG CAP PO PRN (19:30)
[2024-06-08] MEDS: ASPirin-EC 325mg tab PO ONE (20:48)
--- NOTE | 2024-06-08 21:46 | DVHHP2 ---
History of Present Illness Reason for Visit: Chest pain History of Present Illness 53-year-old female presents for evaluation of chest pain. Patient reports a four day history of intermittent substernal pressure-like chest pain that radiates to her left arm. She states the symptoms became more frequent today so she presented for further evaluation. Denies nausea or vomiting. No shortness a breath. No other acute complaints at the moment. Past Medical History Dyslipidemia, diabetes mellitus, hypertension, depression, asthma Past Surgical History Hysterectomy and Family History Noncontributory Smoke: No ALCOHOL: none Drugs: None Lives: with Family Review of Systems Review of Systems Review of systems are currently negative otherwise addressed in HPI. Allergies: Coded Allergies: NO KNOWN ALLERGIES (Unverified , 12/07/20) Medications Current Medications Medications Dose Ordered Sig/Linsey Route Start Time Stop Time Status Last Admin Dose Admin Aspirin 81 mg DAILY PO 06/09/24 10:00 Atorvastatin Calcium 40 mg HS PO 06/08/24 22:00 Lisinopril 5 mg DAILY PO 06/09/24 10:00 Diagnostic Test (Pha) 1 strip ACHS 06/08/24 22:00 Insulin Human Regular ACHS SC 06/08/24 22:00 Dextrose 50 ml UD PRN IV 06/08/24 19:30 Temazepam 15 mg QHSP PRN PO 06/08/24 19:30 Ondansetron HCl 4 mg Q4HP PRN IV 06/08/24 19:30 Acetaminophen 650 mg Q6HP PRN PO 06/08/24 19:30 Nitroglycerin 0.4 mg Q5MINP PRN SL 06/08/24 19:30 Morphine Sulfate 2 mg Q30M PRN IV 06/08/24 19:30 Exam Vital Signs Vital Signs Date Time Temp Pulse Resp B/P (MAP) Pulse Ox O2 Delivery O2 Flow Rate FiO2 06/08/24 21:02 98.1 79 18 137/83 (101) 95 98.1 Exam Gen: 53-year-old female in no apparent distress. Skin: Warm, dry, normal color and texture, no rash. HEENT: Normocephalic atraumatic, mucous membranes moist and pink. Neck: Cervical and supraclavicular nodes normal without enlargement, trachea is midline, thyroid gland is normal without masses. Pulmonary: Clear to auscultation and percussion bilaterally. Cardiac: Regular rate and rhythm. No murmur Abdomen: Soft, nontender, nondistended, bowel sounds present all 4 quadrants, no guarding, no rigidity, no organomegaly. Extremities: No cyanosis, clubbing, no edema Neuro: Cranial nerves II through XII grossly intact, normal affect and speech, no focal motor deficits. Labs/Xrays ORDERING PHYSICIAN: CAM TOVAR DO PROCEDURE(s): CXRP - CHEST PORTABLE REASON: CP ORDER NUMBER(s): [id number], ACCESSION NUMBER(s): [id number] CHEST RADIOGRAPH Indication: CP Technique: Single frontal view of the chest was obtained COMPARISON: CHEST PORTABLE on DOS: 12/07/20 FINDINGS: Lines and Tubes: None Lungs: Clear Pleura: No effusion. No pneumothorax. Cardiomediastinal contours: Unremarkable Bones: Unremarkable IMPRESSION: No acute disease. Labs Test 06/08/24 15:26 06/08/24 13:13 Range/Units Troponin I High Sensitivity < 3 L </=34 ng/L White Blood Count 6.8 4.4-10.8 10^3/uL Red Blood Count 4.67 4.0-5.20 10^6/uL Hemoglobin 14.2 12.2-16.2 g/dL Hematocrit 41.9 36.0-46.0 % Mean Corpuscular Volume 89.7 80.0-100.0 fL Mean Corpuscular Hemoglobin 30.4 28.0-32.0 pg Mean Corpuscular Hemoglobin Concent 33.9 32.0-36.0 g/dL Red Cell Distribution Width 13.7 11.8-14.3 % Platelet Count 264 140-450 10^3/uL Mean Platelet Volume 8.3 6.9-10.8 fL Neutrophils (%) (Auto) 59.0 37.0-80.0 % Lymphocytes (%) (Auto) 26.9 10.0-50.0 % Monocytes (%) (Auto) 3.9 0.0-12.0 % Eosinophils (%) (Auto) 9.6 H 0.0-7.0 % Basophils (%) (Auto) 0.6 0.0-2.0 % Neutrophils # (Auto) 4.0 1.6-8.6 10 ^3/uL Lymphocytes # (Auto) 1.8 0.4-5.4 10 ^3/uL Monocytes # (Auto) 0.3 0-1.3 10 ^3/uL Eosinophils # (Auto) 0.7 0-0.8 10 ^3/uL Basophils # (Auto) 0 0-0.2 10 ^3/uL Nucleated Red Blood Cells 0.1 % D-Dimer, Quantitative 0.20 0.0-0.49 mg/L FEU Sodium Level 139 136-145 mmol/L Potassium Level 4.2 3.5-5.1 mmol/L Chloride Level 103 98-107 mmol/L Carbon Dioxide Level 28 20-31 mmol/L Anion Gap 8 5-15 Blood Urea Nitrogen 11 9-23 mg/dL Creatinine 0.72 0.550-1.02 mg/dL Glomerular Filtration Rate Calc 99 >90 mL/min BUN/Creatinine Ratio 15.3 10.0-20.0 Serum Glucose 239 H 74-106 mg/dL Calcium Level 10.3 8.7-10.4 mg/dL Total Bilirubin 0.5 0.2-1.0 mg/dL Aspartate Amino Transferase (AST) 13 13-40 U/L Alanine Aminotransferase (ALT) 27 7-40 U/L Alkaline Phosphatase 105 46-116 U/L B-Type Natriuretic Peptide 5.94 0-100 pg/mL Total Protein 7.0 5.7-8.2 g/dL Albumin 4.8 3.2-4.8 g/dL Assessment/Plan Assessment/Plan Assessment Chest pain rule out ACS Diabetes mellitus Hypertension Plan Admit the patient to telemetry to the hospitalist Cardiology consultation Echocardiogram pending Resume home medications Continue treatment per orders. Plan discussed with: Patient My Orders Orders - NATHANIEL MANDUJANO AGACNP Procedure Category Date Status Time Aspirin Tablet PHA 06/09/24 In Process 10:00 Atorvastatin (Lipitor) PHA 06/08/24 In Process 22:00 Lisinopril Tablet PHA 06/09/24 In Process (Zestril Tablet) 10:00 * Cardiology Consult CONS 06/08/24 Transmitted 19:16 Basic Metabolic Panel LAB 06/09/24 Verified 04:00 Glucose Blood PHA 06/08/24 In Process (Accu-Chek Comfort 22:00 Insulin R (Human) PHA 06/08/24 In Process (Insulin R) 22:00 Dextrose 50% Syringe PHA 06/08/24 In Process 19:30 Admit ADMIT 06/08/24 Transmitted 19:16 Temazepam (Restoril) PHA 06/08/24 In Process 19:30 Ondansetron Hcl PHA 06/08/24 In Process (Zofran) 19:30 Cardiac DIET 06/09/24 Transmitted Diet-2gna,Lofat,Lochol Breakfast Echo 2d Mode Cardiac US 06/08/24 Logged DOP 19:16 Condition: Fair CHRISTINE 06/08/24 In Process 19:16 Acetaminophen Tablet PHA 06/08/24 In Process (Tylenol Tablet) 19:30 Bedrest With Bathroom CHRISTINE 06/08/24 In Process Privileg 19:16 Nitroglycerin PHA 06/08/24 In Process Sublingual (Ntrostat 19:30 Morphine Sulfate PHA 06/08/24 In Process Injection 19:30 Stat Ekg For Chest CHRISTINE 06/08/24 In Process Pain 19:16 Notify Md Of Changes CHRISTINE 06/08/24 In Process From Base 19:16 Commercial Lending Assistant For CHRISTINE 06/08/24 In Process 24 Hours 19:16 Emergency Dysrhythmia CHRISTINE 06/08/24 In Process Protocol 19:16 Rhythm Strips Once CHRISTINE 06/08/24 In Process Every Shift 19:16 Oxygen By Nasal RT 06/08/24 Transmitted Cannula 19:16 Date of Service: Jun 08, 2024 Billing Provider: NATHANIEL MANDUJANO Common Visit Codes: [id number] INP/OBS CARE (HIGH) NATHANIEL MANDUJANO Jun 08, 2024 21:46
[2024-06-09] VITALS (8 sets, daily range): BP systolic 126–141; BP diastolic 73–87; PULSE 76–96; RESP 16–18; TEMP 97.8–98.7; O2SAT 0–97
[2024-06-09] MEDS: ACCU-CHEK COMFORT CURVE STRIP VI SCH (00:54)
[2024-06-09] MEDS: InsuLIN REG 1unit/0.01ml Soln (100units/ml) SC SCH (00:59)
[2024-06-09] MEDS: ATORVASTATIN 20 MG TAB PO SCH (01:00)
[2024-06-09 03:00] LABS: Chloride 101 mmol/L (98-107); Sodium 140 mmol/L (136-145)
[2024-06-09 03:01] LABS: Anion Gap 9 (5-15); Carbon Dioxide 30 mmol/L (20-31)
[2024-06-09 03:06] LABS: BUN/Creatinine Ratio 20.8 (10.0-20.0); Blood Urea Nitrogen 16 mg/dL (9-23)
[2024-06-09 03:15] LABS: Calcium 11.1 mg/dL (8.7-10.4); Glucose 194 mg/dL (74-106)
[2024-06-09] MEDS ORDERED: NITR0.4O2 PR (04:20)
[2024-06-09] MEDS ORDERED: ATOR80TA PO (04:20)
--- NOTE | 2024-06-09 06:31 | ECG ---
[facility] Test Date: 2024-06-08 Test Time: 13:38:38 Pat Name: LEANA KENDALL Department: ER Room: [facility]5T B Gender: F Party Chief: EMILIANO : 1970 Requested By: CAM TOVAR Order Number: [id number] Reading MD: Eric Jimenez Measurements Intervals [place] Rate: 75 P: 56 [place]: 127 QRS: 10 QRSD: 87 T: 42 QT: 388 QTc: 434 Interpretive Statements Sinus rhythm Low voltage, precordial leads Electronically Signed On 06-10-2024 22:07:54 PST by Eric Jimenez Please click the below link to view image of tracing.
[2024-06-09] MEDS: LISINOPRIL 5 MG TAB PO SCH (11:17)
[2024-06-09] MEDS: ASPirin 81 mg TAB PO SCH (11:17)
[2024-06-09 11:23] LABS: Magnesium 1.9 mg/dL (1.6-2.6)
--- NOTE | 2024-06-09 11:35 | DVHPN2 ---
Reviewed: Care Plan, H&P, Labs, Medications, Previous Orders, Radiology Changes from previous H/P or p: No Changes Objective Vitals Vital Signs Date Time Temp Pulse Resp B/P (MAP) Pulse Ox O2 Delivery O2 Flow Rate FiO2 06/09/24 11:17 141/82 06/09/24 09:25 97.9 83 18 97 97.9 06/09/24 04:21 Room Air* 0 21 Intake/Output Intake and Output 06/09/24 07:00 Intake Total 0 ml Balance 0 ml Intake Oral 0 ml Medications Current Medications Medications Dose Ordered Sig/Linsey Route Start Time Stop Time Status Last Admin Dose Admin Aspirin 81 mg DAILY PO 06/09/24 10:00 06/09/24 11:17 81 MG Atorvastatin Calcium 40 mg HS PO 06/08/24 22:00 06/09/24 01:00 40 MG Lisinopril 5 mg DAILY PO 06/09/24 10:00 06/09/24 11:17 5 MG Diagnostic Test (Pha) 1 strip ACHS 06/08/24 22:00 06/09/24 06:23 1 STRIP Insulin Human Regular ACHS SC 06/08/24 22:00 06/09/24 06:21 6 UNITS Dextrose 50 ml UD PRN IV 06/08/24 19:30 Temazepam 15 mg QHSP PRN PO 06/08/24 19:30 Ondansetron HCl 4 mg Q4HP PRN IV 06/08/24 19:30 Acetaminophen 650 mg Q6HP PRN PO 06/08/24 19:30 Nitroglycerin 0.4 mg Q5MINP PRN SL 06/08/24 19:30 Morphine Sulfate 2 mg Q30M PRN IV 06/08/24 19:30 Laboratory Results Laboratory Tests 06/08/24 13:13 06/09/24 02:33 Chemistry Test 06/08/24 13:13 06/09/24 02:33 Albumin 4.8 g/dL (3.2-4.8) Calcium Level 10.3 mg/dL (8.7-10.4) 11.1 mg/dL (8.7-10.4) H Total Protein 7.0 g/dL (5.7-8.2) Magnesium Level Pending Coagulation Test 06/08/24 13:13 D-Dimer, Quantitative 0.20 mg/L FEU (0.0-0.49) Lipid panel Test 06/09/24 02:33 Cholesterol Level Pending HDL Cholesterol Pending Triglycerides Level Pending Cardiac Markers Test 06/08/24 13:13 B-Type Natriuretic Peptide 5.94 pg/mL (0-100) LFT Test 06/08/24 13:13 Alanine Aminotransferase (ALT) 27 U/L (7-40) Alkaline Phosphatase 105 U/L (46-116) Aspartate Amino Transferase (AST) 13 U/L (13-40) Total Bilirubin 0.5 mg/dL (0.2-1.0) HgA1c, TSH Test 06/09/24 02:33 Hemoglobin A1c 9.8 % A1C (<5.7) H Thyroid Stimulating Hormone (TSH) 2.53 uIU/mL (0.55-4.78) Labs and/or images reviewed: Labs reviewed by me, Image(s) reviewed by me Assessment/Plan Assessment/Plan Chest Pain rule out coronary etiology: Aspirin Lipitor lisinopril: Consult for Nutritionist Public Health Dr Sharp Hyperlipidemia: Cholesterol Hypertension: Lisinopril Uncontrolled diabetes A1c 9.5 insulin sliding scale Depression History of asthma Plan discussed with: Patient Date of Service: Jun 09, 2024 Billing Provider: PB NESBITT MD Common Visit Codes: [id number] INP/OBS CARE(HIGH) PB NESBITT MD Jun 09, 2024 11:35
--- NOTE | 2024-06-09 11:41 | DVHSR ---
APPROVED REPORT EXAM: Two-dimensional and M-mode echocardiogram with Doppler and color Doppler. Blood Pressure: 137/83 mmHg INDICATION Chest Pain RISK FACTORS Obesity: Height: 5'3, Weight: 176 DIMENSIONS LVDd4.9 (3.8-5.7cm)LA (2D)3.1 (1.9-4.0cm)Aortic Root3.4 (2.0-3.7cm) LVDs3.0 (2.5-4.0cm)LA (MM) (1.9-4.0cm)Aortic Cusp Exc1.7 (1.5-2.0cm) EF (%) 55.0 (55-70%)Rt. Atrium3.2 (1.9-4.0cm)Asc. Aorta3.2 cm IVSd0.9 (0.7-1.1cm)RV (D)3.6 (1.8-2.4cm) PWd0.8 (0.7-1.1cm) Mitral Valve MitralMitral Stenosis E wave0.76m/sMV Mean GR.mmHg A wave0.65m/sMV Peak GR.mmHg E/A ratio1.22D MVAcm2 DECEL [id number] 1/2 Timems Aortic Valve Aortic ValveAortic Stenosis V10.86m/Marguerite Mean GR.3mmHg V21.11m/Marguerite Peak GR.5mmHg LVOT Diameter1.9 (1.8-2.4cm)Doppler AVA2.20cm2 Pulmonic Valve V20.78m/s Tricuspid Valve TR Velocity1.93m/s [id number] Conclusion lvef 55% by visual estimate normal rv function mild enlargement normal atria no severe valve abnormalities noted
[2024-06-09] MEDS: POLYETHYLENE GLYCOL 17 GM PWDR PO ONE (11:59)
[2024-06-09] MEDS: REGADENOSON 0.4 MG/5 ML SYRG IV ONE ×2 (13:15→13:37)
--- NOTE | 2024-06-09 13:55 | DVHCONRES ---
Date Seen: Jun 09, 2024 Resident Creating Document: JOANNA YA RESIDENT Referring Physician PUNEET Ortiz Reason for Consultation Chest pain History of Present Illness This is a 53-year-old female who comes into the ED with chief complain of chest pain. She has a past medical history relevant for dyslipidemia, type 2 diabetes, hypertension, asthma, depression. Past surgical history relevant for partial hysterectomy, C-sections. Family history is unremarkable. Social history: Denies smoking, alcohol or illicit drug use Patient stated that for the last four days she has been experiencing intermittent substernal pressure-like chest pain, radiated to the left arm and back. She said that it was moderate, waxes and wanes, gets worse on exertion, relieves with rest and with the stretching. She also stated that it was associated with shortness of breath, heartburn, anxiety. Patient stated she received aspirin in the ED and the pain got better as well. Troponins were negative, D-dimer was negative, BNP was within normal limits. Chest x-ray was unremarkable. EKG shows sinus rhythm, normal axis, no ST changes. On my assessment, patient still complain of intermittent chest pain, denied any significant shortness of breath, dizziness, lightheadedness, diaphoresis, abdominal pain, nausea, vomiting. Family History: Colon cancer G8 MOTHER, Onset:50's - 60 Allergies: Coded Allergies: NO KNOWN ALLERGIES (Unverified , 12/07/20) Home Meds Reported Medications Nitroglycerin (Intra-Anal) (Nitroglycerin) 0.4 % Oin, 0.4 % AK, OIN 06/09/24 Atorvastatin Calcium (Lipitor) 80 Mg Tab, 1 TAB PO DAILY, #30 TAB 5 Refills 06/09/24 Aspirin (ASPIRIN 81) 81 Mg Tab, 81 MG OR, TAB 10/21/23 Glimepiride (Glimepiride) 2 Mg Tab, 1 TAB PO DAILY, #30 TAB 5 Refills 10/21/23 Sitagliptin Phosphate (Januvia) 100 Mg Tab, 1 TAB PO DAILY, #30 TAB 5 Refills 10/21/23 Lisinopril (Lisinopril) 2.5 Mg Tab, 1 TAB PO DAILY, #30 TAB 5 Refills 10/21/23 Current Medications Current Medications Medications (Trade) Dose Ordered Sig/Linsey Route PRN Reason Start Time Stop Time Status Last Admin Aspirin 81 mg DAILY PO 06/09/24 10:00 06/09/24 11:17 Atorvastatin Calcium (Lipitor) 40 mg HS PO 06/08/24 22:00 06/09/24 01:00 Lisinopril (Zestril Tablet) 5 mg DAILY PO 06/09/24 10:00 06/09/24 11:17 Diagnostic Test (Pha) (Accu-Chek Comfort Curve T) 1 strip ACHS 06/08/24 22:00 06/09/24 11:30 Insulin Human Regular (InsuLIN R) ACHS SC 06/08/24 22:00 06/09/24 12:00 Dextrose 50 ml UD PRN IV Blood Sugar LESS THAN 60 06/08/24 19:30 Temazepam (Restoril) 15 mg QHSP PRN PO FOR INSOMNIA 06/08/24 19:30 Ondansetron HCl (Zofran) 4 mg Q4HP PRN IV NAUSEA / VOMITING 06/08/24 19:30 Acetaminophen (Tylenol Tablet) 650 mg Q6HP PRN PO PAIN SCALE 1-3 OR TEMP>100.4 06/08/24 19:30 Nitroglycerin (Ntrostat Sublingual) 0.4 mg Q5MINP PRN SL FOR CHEST PAIN 06/08/24 19:30 Morphine Sulfate 2 mg Q30M PRN IV FOR CHEST PAIN 06/08/24 19:30 Review of Systems Constitutional: Patient denies fevers, chills, sweats and weight changes. Eyes: Patient denies any visual symptoms. Ears, Nose, and Throat: No difficulties with hearing. No symptoms of rhinitis or sore throat. Cardiovascular: Chest pain Respiratory: No dyspnea on exertion, no wheezing or cough. GI: No nausea, vomiting, diarrhea, constipation, abdominal pain, hematochezia or melena. : No urinary hesitancy or dribbling. No nocturia or urinary frequency. No abnormal urethral discharge. Musculoskeletal: No myalgias, arthralgias or edema. Neurologic: No chronic headaches, no seizures. Patient denies numbness, tingling or weakness. Psychiatric: Patient denies problems with mood disturbance. No problems with anxiety. Endocrine: No excessive urination or excessive thirst. Dermatologic: Patient denies any rashes or skin changes. Vital Signs Vital Signs Date Time Temp Pulse Resp B/P (MAP) Pulse Ox O2 Delivery O2 Flow Rate FiO2 06/09/24 12:30 98.7 76 16 126/87 (100) 97 98.7 06/09/24 04:21 Room Air* 0 21 Physical Exam General: Awake, alert, comfortable appearing, in no acute distress. HEENT: Head is normocephalic and atraumatic. Pupils are equal, round, and reactive to light. Extraocular muscles are intact. No nasal discharge. No facial trauma. Intraoral exam shows moist mucous membranes with no tonsillar enlargement or exudate. Neck: Supple with no cervical lymphadenopathy No meningismus. No goiter. Heart: Regular rate without murmur, rub, or gallop. Reproducible chest pain Lungs: Equal breath sounds bilaterally with no wheezing, rales, or rhonchi. T here is no chest wall tenderness or instability. Abdomen: No external sign of injury. Bowel sounds are present. Abdomen is soft, nontender. No rebound, no guarding, no rigidity. There are no palpable masses. There is no flank pain on exam. Extremities: Strong peripheral pulses. There is no clubbing, no cyanosis, and no edema. Skin: No rash. Neurologic: Cranial nerves II-XII intact without motor, sensory, or cerebellar deficit, no asterixis. Labs/Diagnostic Data Labs Test 06/09/24 11:36 06/09/24 02:33 06/08/24 13:13 Range/Units POC Glucose 292 H 70-106 mg/dl Sodium Level 140 136-145 mmol/L Potassium Level 4.0 3.5-5.1 mmol/L Chloride Level 101 98-107 mmol/L Carbon Dioxide Level 30 20-31 mmol/L Anion Gap 9 5-15 Blood Urea Nitrogen 16 9-23 mg/dL Creatinine 0.77 0.550-1.02 mg/dL Glomerular Filtration Rate Calc 92 >90 mL/min BUN/Creatinine Ratio 20.8 H 10.0-20.0 Serum Glucose 194 H 74-106 mg/dL Hemoglobin A1c 9.8 H <5.7 % A1C Calcium Level 11.1 H 8.7-10.4 mg/dL Magnesium Level 1.9 1.6-2.6 mg/dL Troponin I High Sensitivity < 3 L </=34 ng/L Triglycerides Level 297 H < 150 mg/dL Cholesterol Level 182 < 200 mg/dL LDL Cholesterol 104 H < 100 mg/dL HDL Cholesterol 44 40-59 mg/dL Thyroid Stimulating Hormone (TSH) 2.53 0.55-4.78 uIU/mL White Blood Count 6.8 4.4-10.8 10^3/uL Red Blood Count 4.67 4.0-5.20 10^6/uL Hemoglobin 14.2 12.2-16.2 g/dL Hematocrit 41.9 36.0-46.0 % Mean Corpuscular Volume 89.7 80.0-100.0 fL Mean Corpuscular Hemoglobin 30.4 28.0-32.0 pg Mean Corpuscular Hemoglobin Concent 33.9 32.0-36.0 g/dL Red Cell Distribution Width 13.7 11.8-14.3 % Platelet Count 264 140-450 10^3/uL Mean Platelet Volume 8.3 6.9-10.8 fL Neutrophils (%) (Auto) 59.0 37.0-80.0 % Lymphocytes (%) (Auto) 26.9 10.0-50.0 % Monocytes (%) (Auto) 3.9 0.0-12.0 % Eosinophils (%) (Auto) 9.6 H 0.0-7.0 % Basophils (%) (Auto) 0.6 0.0-2.0 % Neutrophils # (Auto) 4.0 1.6-8.6 10 ^3/uL Lymphocytes # (Auto) 1.8 0.4-5.4 10 ^3/uL Monocytes # (Auto) 0.3 0-1.3 10 ^3/uL Eosinophils # (Auto) 0.7 0-0.8 10 ^3/uL Basophils # (Auto) 0 0-0.2 10 ^3/uL Nucleated Red Blood Cells 0.1 % D-Dimer, Quantitative 0.20 0.0-0.49 mg/L FEU Total Bilirubin 0.5 0.2-1.0 mg/dL Aspartate Amino Transferase (AST) 13 13-40 U/L Alanine Aminotransferase (ALT) 27 7-40 U/L Alkaline Phosphatase 105 46-116 U/L B-Type Natriuretic Peptide 5.94 0-100 pg/mL Total Protein 7.0 5.7-8.2 g/dL Albumin 4.8 3.2-4.8 g/dL Assessment Chest pain, rule out ACS, unstable angina, possibly musculoskeletal Type 2 diabetes, uncontrolled Dyslipidemia Hypertension Asthma, controlled Depression Obesity Plan/Recommendation Given chest pain characteristics and patient significant risk factors, we ordered a stress test with Lexiscan, we will follow up on the results Echocardiogram revealed an ejection fraction of 55%, normal RV function with m ild enlargement, no valvulopathy Continue tight glucose control Continue antilipidemic Aspirin 81 mg p.o. q.d. Case was discussed with Dr. Wilson multiple cad risk factors, lexiscan stress Plan discussed with: Patient JOANNA YA RESIDENT Jun 09, 2024 13:55 VIVEK WILSON MD Jun 09, 2024 15:49
[2024-06-10 00:54] VITALS: BP 101/64; PULSE 89; RESP 15; TEMP 98.3; O2SAT 95
[2024-06-10 04:55] VITALS: BP 118/69; PULSE 82; RESP 16; TEMP 97.9; O2SAT 97
[2024-06-10 08:00] VITALS: PULSE 86
[2024-06-10 09:00] VITALS: BP 108/62; PULSE 81; RESP 16; TEMP 98.1; O2SAT 94
--- NOTE | 2024-06-10 11:27 | DVHSR ---
APPROVED REPORT Exam: Nuclear Stress Test Indication: CAD BMI: 0 Medical History Medical History: Hyperlipidemia, HTN, Diabetes, Asthma Allergies: No known drug allergies Stress Test Details Stress Test: Pharmacologic stress testing performed using 0.4 mg of regadenoson per 5 mL given IV ov er 10 seconds. HR Resting HR: 79 bpmMax Heart Rate (APMHR): 166.830407 bpm Max HR Achieved: 101 bpmTarget HR (85% APMHR): 141.230207 bpm % of APMHR: 60.84 Recovery HR: 96 bpm BP Resting BP: 117/78 mmHg Recovery BP: 143/73 mmHg ECG Resting ECG: Sinus Rhythm Clinical Reason for Termination: Completed protocol Nurse Comments Recieved pt. from [employer]. A/Ox4 on RA. Connected to monitoring tech, VS stable. PIV flushes well. Reviewed POC. Pt. verbalized understanding of procedure including risks and side ef fects, agrees for stress testing. Lexiscan stress test performed per protocol. [employer] administered Cardiolite. Pt. tolerated well . Pt. stable, no change on exam. VS returned to baseline. Transferred to [employer] via wheelchair w/ te ch. Stress ECG Conclusion normal perfusion tiny apical defect noted, clinica correlate ecg is SR lvef 61% NM EXAM: Myocardial Perfusion REST/STRESS Imaging Protocol: Rest Tc-99m/Stress Tc-99m 1 day Resting Data Rest SPECT myocardial perfusion imaging was performed in supine position 60 minutes following the int ravenous injection of 11.7 mCi of Tc-99m Sestamibi. Time of rest injection: 1255 Time of rest imagin Administration Route: IV Administration Site: Left Arm Pharmacologic Stress Pharmacologic stress test was performed by injecting Regadenoson 0.4 mg IV push followed by the intra venous injection of 33 mCi of Tc-99m Sestamibi. Time of stress injection: 1348 Time of stress imagin Administration Route: IV Administration Site: Left Arm Gated Stress SPECT was performed 60 minutes after stress injection. The images were gated to evaluate regional wall motion and calculate left ventricular ejection fracti on. Stress only was performed in the Supine position. Nuclear Conclusion Nuclear Findings: negative for ischemia normal perfusion tiny apical defect noted, clinica correlate ecg is SR lvef 61%
--- NOTE | 2024-06-10 12:45 | DVHPN2 ---
Reviewed: Care Plan, H&P, Labs, Medications, Previous Orders, Radiology Changes from previous H/P or p: No Changes Objective Vitals Vital Signs Date Time Temp Pulse Resp B/P (MAP) Pulse Ox O2 Delivery O2 Flow Rate FiO2 06/10/24 10:12 108/62 06/10/24 09:00 98.1 81 16 94 98.1 06/10/24 08:00 Room Air* 0 21 Intake/Output Intake and Output 06/10/24 07:00 Intake Total 1650 ml Balance 1650 ml Intake Oral 1650 ml # Voids 6 # Bowel Movements 1 Medications Current Medications Medications Dose Ordered Sig/Linsey Route Start Time Stop Time Status Last Admin Dose Admin Aspirin 81 mg DAILY PO 06/09/24 10:00 06/10/24 10:12 81 MG Atorvastatin Calcium 40 mg HS PO 06/08/24 22:00 06/09/24 21:57 40 MG Lisinopril 5 mg DAILY PO 06/09/24 10:00 06/10/24 10:12 5 MG Diagnostic Test (Pha) 1 strip ACHS 06/08/24 22:00 06/10/24 11:35 1 STRIP Insulin Human Regular ACHS SC 06/08/24 22:00 06/10/24 11:34 6 UNITS Dextrose 50 ml UD PRN IV 06/08/24 19:30 Temazepam 15 mg QHSP PRN PO 06/08/24 19:30 Ondansetron HCl 4 mg Q4HP PRN IV 06/08/24 19:30 Acetaminophen 650 mg Q6HP PRN PO 06/08/24 19:30 Nitroglycerin 0.4 mg Q5MINP PRN SL 06/08/24 19:30 Morphine Sulfate 2 mg Q30M PRN IV 06/08/24 19:30 Laboratory Results Laboratory Tests 06/08/24 13:13 06/09/24 02:33 Labs and/or images reviewed: Labs reviewed by me, Image(s) reviewed by me Assessment/Plan Assessment/Plan Chest Pain rule out coronary etiology: Aspirin Lipitor lisinopril: Consult for Glove Cleaner Dr Sharp, echocardiogram 50 percent ejection fraction, Cardiolite stress test result pending Hyperlipidemia: Cholesterol Hypertension: Lisinopril Uncontrolled diabetes A1c 9.5 insulin sliding scale Depression History of asthma Plan discussed with: Patient Date of Service: Jun 10, 2024 Billing Provider: PB NESBITT MD Common Visit Codes: [id number] INP/OBS CARE(HIGH) PB NESBITT MD Jun 10, 2024 12:45
--- NOTE | 2024-06-10 12:49 | DVHDS2 ---
Discharge Summary Date of Admission Jun 08, 2024 at 19:16 Date of Discharge: Jun 10, 2024 Admitting Diagnosis Chest pain Wounds: None Labs/Diagnostic Data: Laboratory Results Test 06/10/24 11:09 06/09/24 02:33 06/08/24 13:13 POC Glucose 272 mg/dl (70-106) Sodium Level 140 mmol/L (136-145) Potassium Level 4.0 mmol/L (3.5-5.1) Chloride Level 101 mmol/L (98-107) Carbon Dioxide Level 30 mmol/L (20-31) Anion Gap 9 (5-15) Blood Urea Nitrogen 16 mg/dL (9-23) Creatinine 0.77 mg/dL (0.550-1.02) Glomerular Filtration Rate Calc 92 mL/min (>90) BUN/Creatinine Ratio 20.8 (10.0-20.0) Serum Glucose 194 mg/dL (74-106) Hemoglobin A1c 9.8 % A1C (<5.7) Calcium Level 11.1 mg/dL (8.7-10.4) Magnesium Level 1.9 mg/dL (1.6-2.6) Troponin I High Sensitivity < 3 ng/L (</=34) Triglycerides Level 297 mg/dL (< 150) Cholesterol Level 182 mg/dL (< 200) LDL Cholesterol 104 mg/dL (< 100) HDL Cholesterol 44 mg/dL (40-59) Thyroid Stimulating Hormone (TSH) 2.53 uIU/mL (0.55-4.78) White Blood Count 6.8 10^3/uL (4.4-10.8) Red Blood Count 4.67 10^6/uL (4.0-5.20) Hemoglobin 14.2 g/dL (12.2-16.2) Hematocrit 41.9 % (36.0-46.0) Mean Corpuscular Volume 89.7 fL (80.0-100.0) Mean Corpuscular Hemoglobin 30.4 pg (28.0-32.0) Mean Corpuscular Hemoglobin Concent 33.9 g/dL (32.0-36.0) Red Cell Distribution Width 13.7 % (11.8-14.3) Platelet Count 264 10^3/uL (140-450) Mean Platelet Volume 8.3 fL (6.9-10.8) Neutrophils (%) (Auto) 59.0 % (37.0-80.0) Lymphocytes (%) (Auto) 26.9 % (10.0-50.0) Monocytes (%) (Auto) 3.9 % (0.0-12.0) Eosinophils (%) (Auto) 9.6 % (0.0-7.0) Basophils (%) (Auto) 0.6 % (0.0-2.0) Neutrophils # (Auto) 4.0 10 ^3/uL (1.6-8.6) Lymphocytes # (Auto) 1.8 10 ^3/uL (0.4-5.4) Monocytes # (Auto) 0.3 10 ^3/uL (0-1.3) Eosinophils # (Auto) 0.7 10 ^3/uL (0-0.8) Basophils # (Auto) 0 10 ^3/uL (0-0.2) Nucleated Red Blood Cells 0.1 % D-Dimer, Quantitative 0.20 mg/L FEU (0.0-0.49) Total Bilirubin 0.5 mg/dL (0.2-1.0) Aspartate Amino Transferase (AST) 13 U/L (13-40) Alanine Aminotransferase (ALT) 27 U/L (7-40) Alkaline Phosphatase 105 U/L (46-116) B-Type Natriuretic Peptide 5.94 pg/mL (0-100) Total Protein 7.0 g/dL (5.7-8.2) Albumin 4.8 g/dL (3.2-4.8) Other Laboratory Tests 06/09/24 02:33 06/08/24 13:13 Brief Hx & Hospital Course: 83-year-old female with a history of hypertension hypercholesterolemia diabetes depression asthma came in for chest pain. Troponin negative x3. Treated per ACS protocol. Seen by Cardiology Dr. Sharp echo 50 percent ejection fraction Cardiolite stress test negative cleared for discharge by blower and compressor assembler. The patient asymptomatic at the time of discharge. No new medications. Consults/Reason for consult Cardiology Dr. Sharp Operations or Procedures Echocardiogram Cardiolite stress test Condition at Discharge: Fair Final Diagnosis/Problems List Chest Pain rule out coronary etiology: Aspirin Lipitor lisinopril: Consult for Card Tender Dr Sharp, echocardiogram 50 percent ejection fraction, Cardiolite stress test negative, cleared for discharge by cardiology Hyperlipidemia: Cholesterol Hypertension: Lisinopril Uncontrolled diabetes A1c 9.5 insulin sliding scale Depression History of asthma Discharge Disposition: Home Discharge Instruct/Medications Diet: Cardiac 2g Na,low cholest Activity: Light activity Follow Up/Referral: Resume all previous home medications Follow up with the primary Dr and blower and compressor assembler Medications: none 35 (Time taken for discharge summary 35 minutes) Discharge Statement: "Patient was advised to return to the ER or call 911 if any headaches, dizziness, shortness of breath, chest pain, abdominal pain, bleeding, fevers, or worsening of medical condition. Patient was counseled about treatment plan, medications, possible side effects, patientverbalized understanding. All questions were answered to the best of my ability. This discharge took greater then 30 minutes in planning, reviewing documentation, counseling the patient, and discussing with other team members." ASSESSMENT ASSESSMENT Hospital Course Uneventful Assessment Chest Pain rule out coronary etiology: Aspirin Lipitor lisinopril: Consult for Card Tender Dr Sharp, echocardiogram 50 percent ejection fraction, Cardiolite stress test negative, cleared for discharge by cardiology Hyperlipidemia: Cholesterol Hypertension: Lisinopril Uncontrolled diabetes A1c 9.5 insulin sliding scale Depression History of asthma Date of Service: Jun 10, 2024 Billing Provider: PB NESBITT MD Common Visit Codes: [id number]/OBS DISCH DAY >30min PB NESBITT MD Jun 10, 2024 12:49
[2024-06-10 13:00] VITALS: BP 127/75; PULSE 78; RESP 15; TEMP 98.4; O2SAT 96
== END 2024-06-10 15:45 | disposition home or self-care (01) | DRG 198 ==
LOC: ER 12:33 → OVERFLOW 19:16 → TELE-WESTW 06-09 04:43
PROVIDERS: ADMIT Family Medicine; ATTEND Family Medicine
DX: R07.89 Other chest pain (principal); I25.2 Old myocardial infarction; E11.65 Type 2 diabetes mellitus with hyperglycemia; E78.00 Pure hypercholesterolemia, unspecified; I10 Essential (primary) hypertension; F32.A Depression, unspecified; J45.909 Unspecified asthma, uncomplicated; Z90.710 Acquired absence of both cervix and uterus; Z79.82 Long term (current) use of aspirin; Z79.899 Other long term (current) drug therapy; Z98.891 History of uterine scar from previous surgery
CPT/HCPCS: 36415; 71045; 78452; 80048; 80053; 80061; 82962; 83036; 83735; 83880; 84443; 84484; 85025; 85379; 93005; 93017; 93306; G0378; J1815

== ENCOUNTER 2025-03-27 12:35 | Inpatient (IN) | payer MEDICAID ==
[~2025-03-27] VITALS: Ht 165.1 cm; Wt 104.8 kg
[~2025-03-27 12:35] MED LIST changes: +ATOR80TA PO; -DICY10CA PO; -HYDR5CRE3 PR; +NITR0.4O2 PR
--- NOTE | 2025-03-27 14:34 | ED.PDOC ---
SOB-HPI HPI Comments 54 y/o F, with PMHx of anemia, asthma, DM, HLD, and HTN presents to the ED for CC of shortness of breath. Patient states, she has been experiencing symptoms of shortness of breath, cough, and nasal congestion [id number]. Patient reports, symptoms to have worsen over the course of the month and is now unable to ambulate several feet with gasping for air. Upon arrival to the ED, patient was placed on 2L N.C and is stating at 97%. Patient denies palpitations, chest pain, nausea, vomiting, or headache. No other symptoms or modifying factors are present at this time. 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 Hx Family History Family History: Family hx of DM, Family hx of heart [place] Social History Smoker: Non-Smoker Alcohol: Occasionally Drugs: Denies Drug Use Lives In: Home Constitutional: denies: chills, diaphoresis, fatigue, fever, malaise, sweats, weakness, others EENTM: reports: nose congestion; denies: blurred vision, double vision, ear bleeding, ear discharge, ear drainage, ear pain, ear ringing, eye pain, eye redness, hearing loss, mouth pain, mouth swelling, nasal discharge, nose bleeding, nose pain, photophobia, tearing, throat pain, throat swelling, voice changes, others Respiratory: reports: cough, shortness of breath; denies: hemoptysis, orthopnea, SOB at rest, SOB with excertion, stridor, wheezing, others Cardiovascular: denies: chest pain, dizzy spells, diaphoresis, Dyspnea on exertion, edema, irregular heart beat, left arm pain, lightheadedness, palpitations, PND, syncope, others Gastrointestinal: denies: abdomen distended, abdominal pain, blood streaked bowels, constipated, diarrhea, dysphagia, difficulty swallowing, hematemesis, melena, nausea, poor appetite, poor fluid intake, rectal bleeding, rectal pain, vomiting, others Genitourinary: denies: abnormal vagina bleeding, burning, dyspareunia, dysuria, flank pain, frequency, hematuria, incontinence, pain, , vagina discharge, urgency, others Neurological: denies: dizziness, fainting, headache, left sided numbness, left sided weakness, numbness, paresthesia, pre-existing deficit, right sided numbness, right sided weakness, seizure, speech problems, tingling, tremors, wea kness, others Musculoskeletal: denies: back pain, gout, joint pain, joint swelling, muscle pain, muscle stiffness, neck pain, others Integumetry: denies: bruises, change in color, change in hair/nails, dryness, l aceration, lesions, lumps, rash, wounds, others Allergic/Immunocompromised: denies: Difficulty Healing, Frequent Infections, Hives, Itching, others Hematologic/Lymphatic: denies: anemia, blood clots, easy bleeding, easy bruising, swollen glands, others Endocrine: denies: excessive hunger, excessive sweating, excessive thirst, excessive urination, flushing, intolerance to cold, intolerance to heat, unexplained weight gain, unexplained weight loss, others Psychiatric: denies: anxiety, bipolar disorder, depression, hopeless, panic disorder, schizophrenia, sleepless, suicidal, others All Other Systems: Reviewed and Negative Physical Exam General Appearance: No Apparent Distress, Normal HEENT: Normal ENT Inspection, Pharynx Normal Neck: Full Range of Motion, Non-Tender, Normal, Normal Inspection Respiratory: Chest Non-Tender, No Accessory Muscle Use, No Respiratory Distress, Normal Breath Sounds, Other (coarse breath sounds, ) Cardiovascular: No Edema, No Murmur, No Gallop, Normal Peripheral Pulses, Regular Rate/Rhythm, Other (coarse breath sounds, tachypneic) Breast Exam: Deferred Gastrointestinal: No Organomegaly, Non Tender, No Pulsatile Mass, Normal Bowel Sounds, Soft Genitalia: Deferred Pelvic: Deferred Rectal: Deferred Extremities: No calf tenderness, Normal capillary refill, Normal inspection, Normal range of motion, Non-tender, No pedal edema Musculoskeletal : Apperance: Normal 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 Was a procedure done?: No Differential Dx Differential Diagnosis: Pneumonia, Sinusitis, Pharyngitis, URI X-Ray, Labs, Meds, VS Vital Signs Date Time Temp Pulse Resp B/P (MAP) Pulse Ox O2 Delivery O2 Flow Rate FiO2 03/27/25 17:27 100 20 155/71 (99) 97 03/27/25 15:32 98.2 94 20 129/68 (88) 97 98.2 03/27/25 13:38 98.6 100 18 141/79 (99) 100 98.6 03/27/25 12:48 92 03/27/25 12:38 98.4 104 18 139/87 94 98.4 Lab Test 03/27/25 15:42 03/27/25 14:57 Range/Units Troponin I High Sensitivity < 3 L < 3 L </=34 ng/L White Blood Count 10.0 4.4-10.8 10^3/uL Red Blood Count 4.72 4.0-5.20 10^6/uL Hemoglobin 14.7 12.2-16.2 g/dL Hematocrit 42.6 36.0-46.0 % Mean Corpuscular Volume 90.2 80.0-100.0 fL Mean Corpuscular Hemoglobin 31.0 28.0-32.0 pg Mean Corpuscular Hemoglobin Concent 34.4 32.0-36.0 g/dL Red Cell Distribution Width 14.3 11.8-14.3 % Platelet Count 312 140-450 10^3/uL Mean Platelet Volume 7.7 6.9-10.8 fL Neutrophils (%) (Auto) 69.4 37.0-80.0 % Lymphocytes (%) (Auto) 24.1 10.0-50.0 % Monocytes (%) (Auto) 4.5 0.0-12.0 % Eosinophils (%) (Auto) 1.0 0.0-7.0 % Basophils (%) (Auto) 1.0 0.0-2.0 % Neutrophils # (Auto) 7.0 1.6-8.6 10 ^3/uL Lymphocytes # (Auto) 2.4 0.4-5.4 10 ^3/uL Monocytes # (Auto) 0.4 0-1.3 10 ^3/uL Eosinophils # (Auto) 0.1 0-0.8 10 ^3/uL Basophils # (Auto) 0.1 0-0.2 10 ^3/uL Nucleated Red Blood Cells 0.0 % Sodium Level 141 136-145 mmol/L Potassium Level 3.8 3.5-5.1 mmol/L Chloride Level 102 98-107 mmol/L Carbon Dioxide Level 29 20-31 mmol/L Anion Gap 10 5-15 Blood Urea Nitrogen 11 9-23 mg/dL Creatinine 0.72 0.550-1.02 mg/dL Glomerular Filtration Rate Calc 99 >90 mL/min BUN/Creatinine Ratio 15.3 10.0-20.0 Serum Glucose 220 H 74-106 mg/dL Calcium Level 9.7 8.7-10.4 mg/dL B-Type Natriuretic Peptide 3.19 0-100 pg/mL [place] [id number] Ph: [phone] DIAGNOSTIC IMAGING Diagnostic Imaging Report : [id number] Signed PATIENT: LEANA KENDALL ACCT: [id number] UNIT: [id number] : 1970 LOC: ER ROOM / BED: / AGE / SEX: 54 / F ADM STATUS: REG ER SERVICE 25 ORDERING PHYSICIAN: LUKE MATHEW MD PROCEDURE(s): CXRP - CHEST PORTABLE REASON: cp, sob ORDER NUMBER(s): [id number], ACCESSION NUMBER(s): [id number] CHEST RADIOGRAPH Indication: cp, sob Technique: Single frontal view of the chest was obtained COMPARISON: XY CHEST PORTABLE on DOS: 06/08/24, CHEST PORTABLE on DOS: 12/07/20, CHEST TWO VIEWS ROUTINE on DOS: 01/13/19 FINDINGS: Lines and Tubes: None Lungs: Increased interstitial prominence. This may represent pulmonary vascular congestion and/or viral pneumonia. Pleura: No effusion. No pneumothorax. Cardiomediastinal contours: Unremarkable Bones: Unremarkable IMPRESSION: Increased interstitial prominence. This may represent pulmonary vascular congestion and/or viral pneumonia. ATED BY: DANIAL BARTLETT MD DICTATED DATE/TIME: 03/27/251455 SIGNED BY: DANIAL BARTLETT MD SIGNED DATE/TIME: 03/27/251455 CC: Time of 1ST Reevaluation: 14:30 Reevaluation 1ST: Unchanged Patient Education/Counseling: Diagnosis, Treatment Family Education/Counseling: No Family Present SEPSIS Sepsis Screen Date sepsis recognized/suspect: Mar 27, 2025 Time Sepsis recognized/suspect: 1239 Recent Procedure: No On Antibiotic Therapy: No Respiratory Rate >20: No Heart Rate >90: Yes Temp<36 C (96.8 F) or >38.3 C: No SBP <90 or MAP <65 mmHG: No New Acute Mental Status Change: No Is the patient on CPAP, BIPAP,: No Physician Orders Electrocardigram (03/27/25 13:05) Chest Portable (03/27/25 14:26) Electrocardigram (03/27/25 14:26) Troponin-I Hs (03/27/25 17:26) Electrocardigram (03/27/25 15:26) Electrocardigram (03/27/25 17:26) Albuterol Medneb (Ventolin Medneb) (03/27/25 17:45) Ipratropium Medneb (Atrovent Medneb) (03/27/25 17:45) Azithromycin Tablet (Zithromax Tablet) (03/27/25 17:45) Methylprednisolone Sod Succ (Solu Medrol (03/27/25 17:45) Vital Signs Date Time Temp Pulse Resp B/P (MAP) Pulse Ox O2 Delivery O2 Flow Rate FiO2 03/27/25 17:27 100 20 155/71 (99) 97 03/27/25 15:32 98.2 94 20 129/68 (88) 97 98.2 03/27/25 13:38 98.6 100 18 141/79 (99) 100 98.6 03/27/25 12:48 92 03/27/25 12:38 98.4 104 18 139/87 94 98.4 Laboratory Tests Test 03/27/25 14:57 White Blood Count 10.0 10^3/uL (4.4-10.8) Departure 1 Departure Time of Disposition: 17:40 (Patient presented with acute shortness of breath concerning for acute on chronic COPD Exacerbation, Pneumonia, ACS, CHF, Pne umothorax. Less likely PE, Dissection. Data: 1. I ordered and reviewed the result of at least 3 labs including a CBC, BMP, and Troponin. 2. I independently interpreted the following tests: Chest X-ray shows .Risk:This patient has a high risk of morbidity due to further diagnostic testing or treatment and may suffer from respiratory or cardiac etiology . Workup reveals a likely COPD Exacerbation and patient should be admitted for further workup. and possible expert consultation.) Impression: Primary Impression: Acute and chronic respiratory failure Additional Impression: COPD exacerbation Disposition: ADMITTED INPATIENT Admit to: Tele Condition: Guarded Critical Care Note Critical Care Time?: Yes Critical care comment: Acute respiratory failure Authorized and Performed by: Luke Mathew MD Total critical care time: Approximately 38 minutes Due to a high probability of clinically significant, life threatening dete rioration, the patient required my highest level of preparedness to intervene emergently and I personally spent this critical care time directly and personally managing the patient. This critical care time included obtaining a history; examining the patient; pulse oximetry; ordering and review of studies; arranging urgent treatment with development of a management plan; evaluation of patient's response to treatment; frequent reassessment; and, discussions with other providers. This critical care time was performed to assess and manage the high probability of imminent, life-threatening deterioration that could result in multi-organ f ailure. It was exclusive of separately billable procedures and treating other patients and teaching time. Please see my other sections and the rest of the note for further information on patient assessment and treatment. Stability Stability form required: No Heart Score Heart Score: Heart Score Response (Comments) Value History N/A 0 EKG N/A 0 Age N/A 0 Risk Factors N/A 0 Troponin N/A 0 Total 0 I personally scribed for LUKE MATHEW MD ([email or web address]) on 03/27/25 at 14:34. Electronically submitted by Remedios Judge ([email or web address] [email or web address]). I personally scribed for LUKE MATHEW MD ([email or web address]) on 03/27/25 at 14:55. Electronically submitted by Remedios Judge ([email or web address]). I personally scribed for LUKE MATHEW MD ([email or web address]) on 03/27/25 at 15:17. Electronically submitted by Remedios Judge ([email or web address]). LUKE MATHEW MD Mar 27, 2025 14:34
--- NOTE | 2025-03-27 14:59 | DVH ---
CHEST RADIOGRAPH Indication: cp, sob Technique: Single frontal view of the chest was obtained COMPARISON: XY CHEST PORTABLE on DOS: 06/08/24, CHEST PORTABLE on DOS: 12/07/20, CHEST TWO VIEWS ROUTINE on DOS: 01/13/19 FINDINGS: Lines and Tubes: None Lungs: Increased interstitial prominence. This may represent pulmonary vascular congestion and/or viral pneumonia. Pleura: No effusion. No pneumothorax. Cardiomediastinal contours: Unremarkable Bones: Unremarkable IMPRESSION: Increased interstitial prominence. This may represent pulmonary vascular congestion and/or viral pneumonia.
[2025-03-27 15:08] LABS: Hematocrit 42.6 % (36.0-46.0); Hemoglobin 14.7 g/dL (12.2-16.2); Mean Corpuscular Hemoglobin 31.0 pg (28.0-32.0); Mean Corpuscular Volume 90.2 fL (80.0-100.0); Nucleated Red Blood Cells % 0.0 %
[2025-03-27 15:13] LABS: Chloride 102 mmol/L (98-107); Potassium 3.8 mmol/L (3.5-5.1); Sodium 141 mmol/L (136-145)
[2025-03-27 15:14] LABS: Anion Gap 10 (5-15); Calcium 9.7 mg/dL (8.7-10.4); Carbon Dioxide 29 mmol/L (20-31)
[2025-03-27 15:19] LABS: BUN/Creatinine Ratio 15.3 (10.0-20.0); Blood Urea Nitrogen 11 mg/dL (9-23)
[2025-03-27 15:26] LABS: Glucose 220 mg/dL (74-106)
[2025-03-27] MEDS: IPRATROPIUM BROM 0.5 MG/2.5ML INH SOL NEB ONE (17:56)
[2025-03-27] MEDS: ALBUTEROL SULF 2.5 MG/0.5ML(0.5%) NEB SOLN NEB ONE (17:56)
[2025-03-27] MEDS: ALBUTEROL SULF 2.5 MG/0.5ML(0.5%) NEB SOLN ONE (17:58)
[2025-03-27 18:25] VITALS: PULSE 98; RESP 20; O2SAT 97
[2025-03-27] MEDS: AZITHROMYCIN 250 MG TAB PO ONE (18:30)
[2025-03-27] MEDS: methylPREDNISolone SOD SUCC 125 MG/2 ML VL IV ONE (18:33)
[2025-03-27] MEDS ORDERED: ONDANSETRON HCL 4 MG/2 ML VIAL IV PRN (19:30)
[2025-03-27] MEDS ORDERED: TEMAZEPAM 15 MG CAP PO PRN (19:30)
[2025-03-27] MEDS ORDERED: ACETAMINOPHEN 325 MG TAB PO PRN (19:30)
[2025-03-27] MEDS ORDERED: DEXTROSE (50%) 50ML SYRG IV PRN (19:30)
--- NOTE | 2025-03-27 21:26 | DVHHP2 ---
History of Present Illness Reason for Visit: Shortness for breath History of Present Illness 54-year-old female presents for evaluation of shortness for breath. Patient reports a one month history of intermittent shortness for breath with a nonproductive cough. She states over the past three days symptoms became worse. Denies fever or chills. No chest pain. No other acute complaints. Past Medical History Asthma, diabetes mellitus, dyslipidemia, hypertension Past Surgical History Hysterectomy and Family History Noncontributory Smoke: No ALCOHOL: occassional Drugs: None Lives: with Family Review of Systems Review of Systems Review of systems are currently negative otherwise addressed in HPI. Allergies: Coded Allergies: NO KNOWN ALLERGIES (Unverified , 12/07/20) Medications Current Medications Medications Dose Ordered Sig/Linsey Route Start Time Stop Time Status Last Admin Dose Admin Albuterol 2.5 mg Q6HPRN PRN NEB 03/27/25 19:30 Aspirin 81 mg DAILY PO 03/28/25 10:00 Lisinopril 5 mg DAILY PO 03/28/25 10:00 Pantoprazole Sodium 40 mg DAILY@0600 PO 03/28/25 06:00 Azithromycin 250 ml @ 125 mls/hr DAILY IV 03/28/25 10:00 Diagnostic Test (Pha) 1 strip ACHS 03/27/25 22:00 Insulin Human Regular ACHS SC 03/27/25 22:00 Dextrose 50 ml UD PRN IV 03/27/25 19:30 Temazepam 15 mg QHSP PRN PO 03/27/25 19:30 Ondansetron HCl 4 mg Q4HP PRN IV 03/27/25 19:30 Acetaminophen 650 mg Q6HP PRN PO 03/27/25 19:30 Exam Vital Signs Vital Signs Date Time Temp Pulse Resp B/P (MAP) Pulse Ox O2 Delivery O2 Flow Rate FiO2 03/27/25 19:36 98.2 89 20 151/79 (103) 98 98.2 03/27/25 18:25 Room Air* 0 21 Exam Gen: 54-year-old female in mild distress. Skin: Warm, dry, normal color and texture, no rash. HEENT: Normocephalic atraumatic, mucous membranes moist and pink. Neck: Cervical and supraclavicular nodes normal without enlargement, trachea is midline, thyroid gland is normal without masses. Pulmonary: Clear to auscultation and percussion bilaterally. Cardiac: Regular rate and rhythm. No murmur Abdomen: Soft, nontender, nondistended, bowel sounds present all 4 quadrants, no guarding, no rigidity, no organomegaly. Extremities: No cyanosis, clubbing, no edema Neuro: Cranial nerves II through XII grossly intact, normal affect and speech, no focal motor deficits. Labs/Xrays ORDERING PHYSICIAN: LUKE PEGUERO MD PROCEDURE(s): CXRP - CHEST PORTABLE REASON: cp, sob ORDER NUMBER(s): [id number], ACCESSION NUMBER(s): [id number] CHEST RADIOGRAPH Indication: cp, sob Technique: Single frontal view of the chest was obtained COMPARISON: XY CHEST PORTABLE on DOS: 06/08/24, CHEST PORTABLE on DOS: 12/07/20, CHEST TWO VIEWS ROUTINE on DOS: 01/13/19 FINDINGS: Lines and Tubes: None Lungs: Increased interstitial prominence. This may represent pulmonary vascular congestion and/or viral pneumonia. Pleura: No effusion. No pneumothorax. Cardiomediastinal contours: Unremarkable Bones: Unremarkable IMPRESSION: Increased interstitial prominence. This may represent pulmonary vascular congestion and/or viral pneumonia. Labs Test 03/27/25 15:42 03/27/25 14:57 Range/Units Troponin I High Sensitivity < 3 L </=34 ng/L White Blood Count 10.0 4.4-10.8 10^3/uL Red Blood Count 4.72 4.0-5.20 10^6/uL Hemoglobin 14.7 12.2-16.2 g/dL Hematocrit 42.6 36.0-46.0 % Mean Corpuscular Volume 90.2 80.0-100.0 fL Mean Corpuscular Hemoglobin 31.0 28.0-32.0 pg Mean Corpuscular Hemoglobin Concent 34.4 32.0-36.0 g/dL Red Cell Distribution Width 14.3 11.8-14.3 % Platelet Count 312 140-450 10^3/uL Mean Platelet Volume 7.7 6.9-10.8 fL Neutrophils (%) (Auto) 69.4 37.0-80.0 % Lymphocytes (%) (Auto) 24.1 10.0-50.0 % Monocytes (%) (Auto) 4.5 0.0-12.0 % Eosinophils (%) (Auto) 1.0 0.0-7.0 % Basophils (%) (Auto) 1.0 0.0-2.0 % Neutrophils # (Auto) 7.0 1.6-8.6 10 ^3/uL Lymphocytes # (Auto) 2.4 0.4-5.4 10 ^3/uL Monocytes # (Auto) 0.4 0-1.3 10 ^3/uL Eosinophils # (Auto) 0.1 0-0.8 10 ^3/uL Basophils # (Auto) 0.1 0-0.2 10 ^3/uL Nucleated Red Blood Cells 0.0 % Sodium Level 141 136-145 mmol/L Potassium Level 3.8 3.5-5.1 mmol/L Chloride Level 102 98-107 mmol/L Carbon Dioxide Level 29 20-31 mmol/L Anion Gap 10 5-15 Blood Urea Nitrogen 11 9-23 mg/dL Creatinine 0.72 0.550-1.02 mg/dL Glomerular Filtration Rate Calc 99 >90 mL/min BUN/Creatinine Ratio 15.3 10.0-20.0 Serum Glucose 220 H 74-106 mg/dL Calcium Level 9.7 8.7-10.4 mg/dL B-Type Natriuretic Peptide 3.19 0-100 pg/mL SEPSIS Sepsis Screen Date sepsis recognized/suspect: Mar 27, 2025 Time Sepsis recognized/suspect: 1824 Recent Procedure: No On Antibiotic Therapy: No Respiratory Rate >20: No Heart Rate >90: Yes Temp<36 C (96.8 F) or >38.3 C: No SBP <90 or MAP <65 mmHG: No New Acute Mental Status Change: No Is the patient on CPAP, BIPAP,: No Physician Orders Chest Portable (03/27/25 14:26) Electrocardigram (03/27/25 14:26) Electrocardigram (03/27/25 15:26) Electrocardigram (03/27/25 17:26) Albuterol Medneb (Ventolin Medneb) (03/27/25 19:30) Aspirin Tablet (03/28/25 10:00) Lisinopril Tablet (Zestril Tablet) (03/28/25 10:00) Azithromycin 500mg/250ml (Zithromax 500m (03/28/25 10:00) Basic Metabolic Panel (03/28/25 04:00) Glucose Blood (Accu-Chek Comfort Curve T (03/27/25 22:00) Insulin R (Human) (Insulin R) (03/27/25 22:00) Dextrose 50% Syringe (03/27/25 19:30) Admit (03/27/25 19:27) Temazepam (Restoril) (03/27/25 19:30) Ondansetron Hcl (Zofran) (03/27/25 19:30) Cardiac Diet-2gna,Lofat,Lochol (03/28/25 Breakfast) Condition: Stable (03/27/25 19:27) Acetaminophen Tablet (Tylenol Tablet) (03/27/25 19:30) Bedrest With Bathroom Privileg (03/27/25 19:27) Pantoprazole Tablet (Protonix Tablet) (03/28/25 06:00) Vital Signs Date Time Temp Pulse Resp B/P (MAP) Pulse Ox O2 Delivery O2 Flow Rate FiO2 03/27/25 19:36 98.2 89 20 151/79 (103) 98 98.2 03/27/25 18:25 98.2 98 20 151/79 (103) 97 98.2 03/27/25 18:25 98 20 97 Room Air* 0 21 03/27/25 17:56 20 99 Nasal Cannula* 3 32 03/27/25 17:27 100 20 155/71 (99) 97 03/27/25 15:32 98.2 94 20 129/68 (88) 97 98.2 03/27/25 13:38 98.6 100 18 141/79 (99) 100 98.6 Laboratory Tests Test 03/27/25 14:57 White Blood Count 10.0 10^3/uL (4.4-10.8) Medications Medications Dose Ordered Sig/Linsey Route Start Time Stop Time Status Last Admin Dose Admin Albuterol 5 mg ONCE ONCE NEB 03/27/25 17:45 03/27/25 17:53 DC 03/27/25 17:56 5 MG Azithromycin 500 mg ONCE ONCE PO 03/27/25 17:45 03/27/25 17:53 DC 03/27/25 18:30 500 MG Ipratropium Zullinger 0.5 mg ONCE ONCE NEB 03/27/25 17:45 03/27/25 17:53 DC 03/27/25 17:56 0.5 MG Methylprednisolone Sodium Succinate 62.5 mg ONCE ONCE IV 03/27/25 17:45 03/27/25 17:53 DC 03/27/25 18:33 62.5 MG Assessment/Plan Assessment/Plan Assessment Acute respiratory distress Pneumonitis Diabetes mellitus Hypertension Plan Admit the patient to Med surge to the hospitalist Med kelleys Azithromycin Resume home medications Continue treatment per orders. Plan discussed with: Patient My Orders Orders - NATHANIEL MANDUJANO Procedure Category Date Status Time Albuterol Medneb PHA 03/27/25 In Process (Ventolin Medneb) 19:30 Aspirin Tablet PHA 03/28/25 In Process 10:00 Lisinopril Tablet PHA 03/28/25 In Process (Zestril Tablet) 10:00 Azithromycin PHA 03/28/25 In Process 500mg/250ml 10:00 Basic Metabolic Panel LAB 03/28/25 Verified 04:00 Glucose Blood PHA 03/27/25 In Process (Accu-Chek Comfort 22:00 Insulin R (Human) PHA 03/27/25 In Process (Insulin R) 22:00 Dextrose 50% Syringe PHA 03/27/25 In Process 19:30 Admit ADMIT 03/27/25 Transmitted 19:27 Temazepam (Restoril) PHA 03/27/25 In Process 19:30 Ondansetron Hcl PHA 03/27/25 In Process (Zofran) 19:30 Cardiac DIET 03/28/25 Transmitted Diet-2gna,Lofat,Lochol Breakfast Condition: Stable CHRISTINE 03/27/25 In Process 19:27 Acetaminophen Tablet PHA 03/27/25 In Process (Tylenol Tablet) 19:30 Bedrest With Bathroom CHRISTINE 03/27/25 In Process Privileg 19:27 Pantoprazole Tablet PHA 03/28/25 In Process (Protonix Tablet) 06:00 Date of Service: Mar 27, 2025 Billing Provider: NATHANIEL MANDUJANO Common Visit Codes: [id number] INP/OBS CARE (MOD) NATHANIEL MANDUJANO Mar 27, 2025 21:25
[2025-03-27] MEDS: ACCU-CHEK COMFORT CURVE STRIP VI SCH (22:00)
[2025-03-27 22:20] VITALS: BP 151/79; PULSE 89; RESP 20; TEMP 98.2; O2SAT 99
[2025-03-27] MEDS: InsuLIN REG 1unit/0.01ml Soln (100units/ml) SC SCH (22:51)
[2025-03-28] VITALS (15 sets, daily range): BP systolic 119–160; BP diastolic 70–93; PULSE 85–107; RESP 14–21; TEMP 97.3–98.1; O2SAT 95–100
[2025-03-28] MEDS: PANTOPRAZOLE 40 MG TAB PO SCH (04:59)
--- NOTE | 2025-03-28 06:41 | ECG ---
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
[2025-03-28] MEDS: ALBUTEROL SULF 2.5 MG/0.5ML(0.5%) NEB SOLN NEB PRN (08:36)
[2025-03-28 08:52] LABS: Chloride 103 mmol/L (98-107); Potassium 4.3 mmol/L (3.5-5.1); Sodium 139 mmol/L (136-145)
[2025-03-28 08:53] LABS: Anion Gap 10 (5-15); Calcium 9.5 mg/dL (8.7-10.4); Carbon Dioxide 26 mmol/L (20-31)
[2025-03-28 08:58] LABS: BUN/Creatinine Ratio 20.0 (10.0-20.0); Blood Urea Nitrogen 14 mg/dL (9-23)
[2025-03-28 09:01] LABS: Glucose 312 mg/dL (74-106)
[2025-03-28] MEDS: AZITHROMYCIN 500MG/250ML 250 ML IV SCH (10:42)
[2025-03-28] MEDS: LISINOPRIL 5 MG TAB PO SCH (10:44)
--- NOTE | 2025-03-28 15:40 | DVHPN2 ---
Subjective Patient continues to report having cough and dyspnea. Reviewed: Care Plan, H&P, Labs, Medications Changes from previous H/P or p: No Changes General: Per HPI Objective Vitals Vital Signs Date Time Temp Pulse Resp B/P (MAP) Pulse Ox O2 Delivery O2 Flow Rate FiO2 03/28/25 14:33 93 133/70 (91) 96 03/28/25 13:00 98.0 20 98.0 03/28/25 08:36 Nasal Cannula 3.0 03/28/25 08:36 32 Intake/Output Intake and Output 03/28/25 07:00 Intake Total 100 ml Balance 100 ml Intake Oral 100 ml # Voids 1 General Appearance: Alert, Oriented X3, Cooperative, mild distress HEENT: Atraumatic, PERRLA Cardiovascular: Normal S1, Normal S2 Abdomen: Normal bowel sounds, Soft, No tenderness, No hepatospenomegaly Musculoskeletal: Normal sensory function, Normal motor function Extremities: No clubbing, No cyanosis, No edema, Normal pulses, No tenderness/swelling Neuro: Normal speech Skin: Dry, Intact Psych/Mental Status: Mental status NL, Mood NL Medications Current Medications Medications Dose Ordered Sig/Linsey Route Start Time Stop Time Status Last Admin Dose Admin Albuterol 2.5 mg Q6HPRN PRN NEB 03/27/25 19:30 03/28/25 08:36 2.5 MG Lisinopril 5 mg DAILY PO 03/28/25 10:00 03/28/25 10:44 5 MG Pantoprazole Sodium 40 mg DAILY@0600 PO 03/28/25 06:00 03/28/25 04:59 40 MG Azithromycin 250 ml @ 125 mls/hr DAILY IV 03/28/25 10:00 03/28/25 10:42 125 MLS/HR Diagnostic Test (Pha) 1 strip ACHS 03/27/25 22:00 03/28/25 12:15 1 STRIP Insulin Human Regular ACHS SC 03/27/25 22:00 03/28/25 12:30 10 UNITS Dextrose 50 ml UD PRN IV 03/27/25 19:30 Temazepam 15 mg QHSP PRN PO 03/27/25 19:30 Ondansetron HCl 4 mg Q4HP PRN IV 03/27/25 19:30 Acetaminophen 650 mg Q6HP PRN PO 03/27/25 19:30 Aspirin 81 mg DAILY PO 03/29/25 10:00 Laboratory Results Laboratory Tests 03/27/25 14:57 03/28/25 08:10 Chemistry Test 03/28/25 08:10 Calcium Level 9.5 mg/dL (8.7-10.4) HgA1c, TSH Test 03/28/25 08:10 Hemoglobin A1c Pending Labs and/or images reviewed: Labs reviewed by me, Image(s) reviewed by me Assessment/Plan Assessment/Plan Impression: -probable viral pneumonia -acute hypoxic respiratory failure -diabetes mellitus -obesity -asthma Plan: -q.6 hour bronchodilators -check hemoglobin A1c -report b.i.d. -check influenza and COVID-19 -regular insulin sliding scale -antitussives -repeat labs in a.m. Total time spent with patient discussing and formulating plan of care: 35 minutes. This medical document was created using an electronic medical record system with FinalCAD dictation system. Although this document has been carefully reviewed, there may still be some phonetic and typographical errors. These areas are purely typographical due to imperfections of the software programs, and do not reflect any compromise in the patient's medical care. Plan discussed with: Patient, Other (Rn) My Orders Orders - ELVI GUNTER NP Procedure Category Date Status Time Hemoglobin A1c LAB 03/28/25 In Process 15:21 Covid19 Antigen [facility] LAB 03/28/25 Logged Rapid Influenza A&B LAB 03/28/25 Logged 15:21 Albuterol Medneb PHA 03/28/25 Logged (Ventolin Medneb) 18:00 Melatonin (Melatonin) PHA 03/28/25 Logged 22:00 Ipratropium Medneb PHA 03/28/25 Logged (Atrovent Medneb) 18:00 Guaifenesin-Codeine PHA 03/28/25 Transmitted Liquid (Robitussin/C 15:45 Date of Service: Mar 28, 2025 Billing Provider: ELVI GUNTER NP Common Visit Codes: [id number] INP/OBS CARE(HIGH) ELVI GUNTER NP Mar 28, 2025 15:39
[2025-03-28 17:25] LABS: COVID19 ANTIGEN SOFIA FIA NEGATIVE (NEGATIVE)
[2025-03-28] MEDS: guaiFENesin-CODEINE Liq 5 ML UD PO PRN (18:19)
[2025-03-28] MEDS: IPRATROPIUM BROM 0.5 MG/2.5ML INH SOL NEB SCH (19:13)
[2025-03-28] MEDS: ALBUTEROL SULF 2.5 MG/0.5ML(0.5%) NEB SOLN NEB SCH (19:14)
[2025-03-28] MEDS: MELATONIN 5 MG TAB PO ONE (21:22)
[2025-03-29] VITALS (13 sets, daily range): BP systolic 108–129; BP diastolic 62–83; PULSE 74–103; RESP 14–21; TEMP 36.7; O2SAT 96–100
[2025-03-29 07:32] LABS: Hematocrit 41.5 % (36.0-46.0); Hemoglobin 13.7 g/dL (12.2-16.2); Mean Corpuscular Hemoglobin 30.1 pg (28.0-32.0); Mean Corpuscular Volume 91.1 fL (80.0-100.0); Nucleated Red Blood Cells % 0.1 %
[2025-03-29 07:56] LABS: Alanine Aminotransferase 32 U/L (7-40); Albumin 4.6 g/dL (3.2-4.8); Alkaline Phosphatase 90 U/L (46-116); Anion Gap 9 (5-15); BUN/Creatinine Ratio 23.9 (10.0-20.0); Bilirubin, Total 0.8 mg/dL (0.2-1.0); Blood Urea Nitrogen 16 mg/dL (9-23); Calcium 9.5 mg/dL (8.7-10.4); Carbon Dioxide 26 mmol/L (20-31); Chloride 105 mmol/L (98-107); Potassium 3.9 mmol/L (3.5-5.1); Sodium 140 mmol/L (136-145); Total Protein 7.4 g/dL (5.7-8.2)
[2025-03-29 07:59] LABS: Glucose 230 mg/dL (74-106)
[2025-03-29] MEDS ORDERED: GUAI100S6 PO (10:03)
[2025-03-29] MEDS ORDERED: AZITTAB PO (10:05)
[2025-03-29] MEDS ORDERED: GUAI1SOL3 PO (10:06)
[2025-03-29] MEDS ORDERED: PROM1SOL4 PO (10:27)
--- NOTE | 2025-03-29 10:32 | DVHDS2 ---
Discharge Summary Date of Admission Mar 27, 2025 at 19:27 Date of Discharge: Mar 29, 2025 Admitting Diagnosis Acute respiratory distress Labs/Diagnostic Data: Laboratory Results Test 03/29/25 06:34 03/29/25 05:26 03/28/25 12:18 03/28/25 08:10 White Blood Count 11.5 10^3/uL (4.4-10.8) Red Blood Count 4.56 10^6/uL (4.0-5.20) Hemoglobin 13.7 g/dL (12.2-16.2) Hematocrit 41.5 % (36.0-46.0) Mean Corpuscular Volume 91.1 fL (80.0-100.0) Mean Corpuscular Hemoglobin 30.1 pg (28.0-32.0) Mean Corpuscular Hemoglobin Concent 33.0 g/dL (32.0-36.0) Red Cell Distribution Width 14.3 % (11.8-14.3) Platelet Count 313 10^3/uL (140-450) Mean Platelet Volume 8.0 fL (6.9-10.8) Neutrophils (%) (Auto) 68.4 % (37.0-80.0) Lymphocytes (%) (Auto) 25.3 % (10.0-50.0) Monocytes (%) (Auto) 5.0 % (0.0-12.0) Eosinophils (%) (Auto) 0.5 % (0.0-7.0) Basophils (%) (Auto) 0.8 % (0.0-2.0) Neutrophils # (Auto) 7.8 10 ^3/uL (1.6-8.6) Lymphocytes # (Auto) 2.9 10 ^3/uL (0.4-5.4) Monocytes # (Auto) 0.6 10 ^3/uL (0-1.3) Eosinophils # (Auto) 0.1 10 ^3/uL (0-0.8) Basophils # (Auto) 0.1 10 ^3/uL (0-0.2) Nucleated Red Blood Cells 0.1 % Sodium Level 140 mmol/L (136-145) Potassium Level 3.9 mmol/L (3.5-5.1) Chloride Level 105 mmol/L (98-107) Carbon Dioxide Level 26 mmol/L (20-31) Anion Gap 9 (5-15) Blood Urea Nitrogen 16 mg/dL (9-23) Creatinine 0.67 mg/dL (0.550-1.02) Glomerular Filtration Rate Calc 103 mL/min (>90) BUN/Creatinine Ratio 23.9 (10.0-20.0) Serum Glucose 230 mg/dL (74-106) Calcium Level 9.5 mg/dL (8.7-10.4) Total Bilirubin 0.8 mg/dL (0.2-1.0) Aspartate Amino Transferase (AST) 12 U/L (13-40) Alanine Aminotransferase (ALT) 32 U/L (7-40) Alkaline Phosphatase 90 U/L (46-116) Total Protein 7.4 g/dL (5.7-8.2) Albumin 4.6 g/dL (3.2-4.8) POC Glucose 266 mg/dl (70-106) Influenza Type A Antigen Negative (Negative) Influenza Type B Antigen Negative (Negative) SARS-CoV-2 Antigen (Rapid) Negative (NEGATIVE) Hemoglobin A1c 8.4 % A1C (<5.7) Test 03/27/25 15:42 03/27/25 14:57 Troponin I High Sensitivity < 3 ng/L (</=34) B-Type Natriuretic Peptide 3.19 pg/mL (0-100) Other Laboratory Tests 03/29/25 06:34 Brief Hx & Hospital Course: History of Present Illness 54-year-old female presents for evaluation of shortness for breath. Patient reports a one month history of intermittent shortness for breath with a nonproductive cough. She states over the past three days symptoms became worse. Denies fever or chills. No chest pain. No other acute complaints. Course of hospitalization: Patient was started on bronchodilators q.6 hours, as well as empiric antibiotic therapy. Patient was checked for COVID-19 as well as influenza, for which all tests have come back negative. Patient was given IV Solu-Medrol with improvement with the patient's respiratory status. She has been weaned off of oxygen. She clinically states that her coughing has improved as well as her difficulty breathing. Patient will be discharged home and is instructed to continue her Advair and rescue inhaler as needed. Patient is also on Trulicity as well as glimepiride, for which her blood sugars have been controlled at home. It was discussed that patient's hemoglobin A1c was 8.4, as instructed to follow up with her PCP for further alterations to her diabetic medications. Given she still has a cough that is somewhat uncontrolled, she will be provided guaifenesin with Phenergan, 5 mL q.6 hours as needed for cough. She will also be provided a prescription for azithromycin unit Dosepak. Patient was agreeable with discharge plan. All questions answered. Physical examination General: Alert and Oriented x3. No acute distress. Well-nourished. Obese Eyes: EOMI. Anicteric. HENT: Moist mucous membranes. Lungs: Clear to auscultation bilaterally. No accessory muscle use. Cardiovascular: Regular rate and rhythm. No murmur. No JVD. Abdomen: Soft, non-tender and non-distended. No palpable masses. Extremities: No edema. Non-tender. Skin: No rashes or lesions. Warm. Neurologic: No focal neurological deficits. CN II-XII grossly intact, but not individually tested. Psychiatric: Cooperative. Appropriate mood and affect. Total time spent with patient discussing and formulating plan of care: 35 minutes. This medical document was created using an electronic medical record system with [employer] dictation system. Although this document has been carefully reviewed, there may still be some phonetic and typographical errors. These areas are purely typographical due to imperfections of the software programs, and do not reflect any compromise in the patient's medical care. Condition at Discharge: Fair Final Diagnosis/Problems List Atypical pneumonia, probable viral etiology -acute hypoxic respiratory failure -diabetes mellitus -obesity -asthma with exacerbation Discharge Disposition: Home Discharge Instruct/Medications Diet: Consistent carbohydrate Activity: No Restrictions, As Tolerated Follow Up/Referral: Follow up with PCP in 1-2 weeks Medications: Continue all previous home medications including albuterol rescue inhaler and Advair Robitussin with promethazine, 5 mL q.6 hours as needed for cough Azithromycin unit Dosepak Scheduled Atorvastatin Calcium (Lipitor), 1 TAB PO DAILY, (Reported) Azithromycin (Zithromax Z-Asif), 250 MG PO DAILY Glimepiride (Glimepiride), 1 TAB PO DAILY, (Reported) Guaifenesin-Codeine (Robitussin/Codeine), 5 ML PO Q6HR, (Reported) Lisinopril (Lisinopril), 1 TAB PO DAILY, (Reported) Scheduled PRN Guaifenesin-Codeine (Codeine/Guaifenesin 100-10 mg/5Ml), 1 RAISSA PO Q6HP PRN, (Reported) Promethazine-Dm (Promethazine Dm 6.25-15 mg/5Ml), 1 RAISSA PO Q6HP PRN Miscellaneous Medications Aspirin (Aspirin 81), 81 MG OR, (Reported) Nitroglycerin (Intra-Anal) (Nitroglycerin), 0.4 % DC, (Reported) Discontinued Medications Sitagliptin Phosphate (Januvia), 1 TAB PO DAILY, (Reported) 36 Discharge Statement: "Patient was advised to return to the ER or call 911 if any headaches, dizziness, shortness of breath, chest pain, abdominal pain, bleeding, fevers, or worsening of medical condition. Patient was counseled about treatment plan, medications, possible side effects, patientverbalized understanding. All questions were answered to the best of my ability. This discharge took greater then 30 minutes in planning, reviewing documentation, counseling the patient, and discussing with other team members." ASSESSMENT ASSESSMENT Assessment Atypical pneumonia, probable viral etiology Date of Service: Mar 29, 2025 Billing Provider: ELVI GUNTER NP Common Visit Codes: 91921-YEK/OBS DISCH DAY >30min ELVI GUNTER NP Mar 29, 2025 10:32
--- NOTE | 2025-03-29 12:19 | DVH ---
CHEST RADIOGRAPH INDICATION: pna TECHNIQUE: Single frontal view of the chest was obtained COMPARISON: XY CHEST PORTABLE on DOS: 03/27/25, XY CHEST PORTABLE on DOS: 06/08/24, CHEST PORTABLE on DOS: 12/07/20, CHEST TWO VIEWS ROUTINE on DOS: 01/13/19, XY CHEST PORTABLE on DOS: 03/27/25 FINDINGS: Lines and Tubes: None Lungs: Increased interstitial prominence. This may represent pulmonary vascular congestion and/or viral pneumonia. Pleura: No effusion. No pneumothorax. Cardiomediastinal contours: Unremarkable Bones: Unremarkable IMPRESSION: 1. Increased interstitial prominence. 2. This may represent pulmonary vascular congestion and/or viral pneumonia.
== END 2025-03-29 15:54 | disposition home or self-care (01) | DRG 133 ==
LOC: ER 12:35 → OVERFLOW 19:27 → WEST WING 03-28 01:36
PROVIDERS: ADMIT Nurse Practitioner Acute Care; ATTEND Nurse Practitioner Acute Care
DX: J96.21 Acute and chronic respiratory failure with hypoxia (principal); J12.9 Viral pneumonia, unspecified; J45.901 Unspecified asthma with (acute) exacerbation; E11.9 Type 2 diabetes mellitus without complications; I10 Essential (primary) hypertension; E66.9 Obesity, unspecified; F32.A Depression, unspecified; Z20.822 Contact with and (suspected) exposure to COVID-19; Z68.37 Body mass index [BMI] 37.0-37.9, adult; J98.4 Other disorders of lung; E78.5 Hyperlipidemia, unspecified; Z83.3 Family history of diabetes mellitus; Z90.710 Acquired absence of both cervix and uterus
CPT/HCPCS: 36415; 71045; 80048; 80053; 82962; 83036; 83880; 84484; 85025; 87426; 87804; 93005; 94640; 99291; G0378; J1815